=== PATIENT | female | born 1990 | race Caucasian/White ===

== ENCOUNTER 2020-03-21 14:29 | Outpatient (RCR) | payer MEDICAID, SELFPAY | END 2020-06-19 23:59 | disposition home or self-care (01) | LOC: ANHLAB 14:29 | PROVIDERS: PCP Nurse Practitioner Family; Visit Provider Obstetrics & Gynecology | DX: Z34.90 Encounter for supervision of normal pregnancy, unspecified, unspecified trimester (principal) | CPT/HCPCS: 36415; 84702 ==

== ENCOUNTER 2020-03-23 16:57 | Outpatient (CLI) | payer MEDICAID, SELFPAY | END 2020-03-23 16:58 | disposition home or self-care (01) | PROVIDERS: PCP Nurse Practitioner Family; Visit Provider Obstetrics & Gynecology | DX: Z34.90 Encounter for supervision of normal pregnancy, unspecified, unspecified trimester (principal) | CPT/HCPCS: 36415; 84702 ==

== ENCOUNTER 2020-03-29 14:58 | Outpatient (CLI) | payer MEDICAID, SELFPAY ==
--- NOTE | ~2020-03-29 | US_ITS ---
EXAMINATION: US OB <= 14 weeks fetus DATE: 03/29/2020 15:56 INDICATION: Uncertain dates. TECHNIQUE: Real-time transabdominal pelvic ultrasound was performed. COMPARISON: None. FINDINGS: The uterus measures 10.3 x 5.9 x 7.0 cm. There is an intrauterine gestational sac. A yolk sac is iden tified. The crown rump length measures 1.0 cm, which correlates with an estimated gestational age of 7 weeks and 1 day(s) (+/-) 5 day(s). heart motion is identified measuring 144 beats per minute (bpm) by M-mode Doppler. The right ovary measures 2.1 x 1.3 x 1.1 cm. The left ovary is not vi sualized. There is no free fluid in the pelvis. IMPRESSION: 1. Single living intrauterine gestation with estimated date of delivery of 11/14/2020. Reviewed, dictated and finalized at location A. IMPRESSION: 1. Single living intrauterine gestation with estimated date of delivery of 10/21.
== END 2020-03-29 14:59 | disposition home or self-care (01) ==
PROVIDERS: PCP Nurse Practitioner Family; Visit Provider Obstetrics & Gynecology
DX: Z34.90 Encounter for supervision of normal pregnancy, unspecified, unspecified trimester (principal); Z3A.00 Weeks of gestation of pregnancy not specified
CPT/HCPCS: 76801

== ENCOUNTER 2020-05-23 07:31 | Outpatient (CLI) | payer BC, MEDICAID, SELFPAY ==
[2020-05-23 08:08] LABS: Basophils Percent Auto 0.4 % (0.2-1.2); Eosinophils Absolute Auto 0.2 K/mm3 (0-0.3); Eosinophils Percent Auto 1.5 % (0-4.4); Hematocrit 35.9 % (37.0-47.0); Hemoglobin 12.3 g/dL (12.0-15.0); Immature Granulocyte Absolute 0.04 K/mm3 (0.00-0.031); Immature Granulocyte Percent A 0.4 % (0-0.5); Lymphocytes Absolute Auto 1.71 K/mm3 (0.9-3.2); Lymphocytes Percent Auto 17.2 % (18.3-44.2); Mean Corpuscular HGB Conc 34.3 g/dl (32-36); Mean Corpuscular Hemoglobin 29.9 pg (26-34); Mean Corpuscular Volume 87.1 fl (80-100); Mean Platelet Volume 9.2 fl (7.4-10.4); Monocytes Absolute Auto 0.5 K/mm3 (0.1-0.6); Monocytes Percent Auto 4.8 % (2.6-8.5); Neutrophils Absolute Auto 7.5 K/mm3 (1.3-6.7); Neutrophils Percent Auto 75.7 % (45.5-73.1); Platelet Count Result 285 k/mm3 (150-375); Red Blood Count 4.12 M/mm3 (4.2-5.4); Red Cell Distribution Width 12.9 % (11.5-14.5); White Blood Count 9.9 K/mm3 (4.5-10.0)
[2020-05-23 08:14] LABS: Add Urine Microscopic? YES; Appearance Urine Cloudy (Clear); Bacteria Urine Trace /hpf; Bilirubin Urine Negative (Negative); Blood Urine 2+ (Negative); Color Urine Yellow (Yellow); Glucose Urine UA Negative (Negative); Ketones Urine Negative (Negative); Leukocyte Esterase Ur Negative LEU/UL (NEGATIVE); Mucus Urine Moderate /lpf; Nitrate Urine Negative (Negative); Protein Urine 1+ mg/dL (Negative); Specific Grav Ur 1.019 (1.001-1.035); Squamous Epithelial Cell Urine Many /hpf (Few)
[2020-05-23 08:58] LABS: HIV 1/2 Ab P24 Ag Result Negative (Negative)
[2020-05-23 11:18] LABS: Hepatitis B Surface Antigen Negative (Negative); Rubella IgG Antibody 7.1 IU/ML; Vitamin D 25 Hydroxy 31.8 ng/mL
[2020-05-23 11:21] LABS: Hepatitis C Virus Antibody Negative (Negative)
[2020-05-23 11:35] LABS: Rapid Plasma Reagin Non-Reactive (NonReactive)
[2020-05-30 06:37] LABS: Hematocrit 36.3 % (35.0-45.0); Hemoglobin 12.5 g/dL (11.7-15.5); MCH 30.7 pg (27.0-33.0); MCV 89.2 FL (80.0-100.0); RDW 13.8 % (11.0-15.0); Red Blood Cell Count 4.07 Mill/uL (3.80-5.10)
== END 2020-05-23 07:32 | disposition home or self-care (01) ==
PROVIDERS: PCP Nurse Practitioner Family; Visit Provider Obstetrics & Gynecology
DX: Z34.90 Encounter for supervision of normal pregnancy, unspecified, unspecified trimester (principal)
CPT/HCPCS: 36415; 81001; 82306; 83021; 84443; 85025; 85461; 86592; 86703; 86762; 86787; 86803; 87086; 87340; G0432

== ENCOUNTER 2020-08-07 17:00 | Observation (INO) | payer BC, OTHER, SELFPAY ==
[2020-08-07 17:29] VITALS: BP 128/78; PULSE 95; BMI 29.6
[2020-08-07 17:31] VITALS: BP 129/80; PULSE 105
--- NOTE | 2020-08-07 17:31 | OBADM ---
This patient, Gerri Calvo, admitted to the OB room OB Post 115 for observation. Patient/family oriented to hospital policies and general routines including ID bracelet, bed and alarms, visiting hours, pain management, procedures, bathroom and other care routines, personal items, smoking policy, room service/diet, and visiting hours. Patient/Family are encouraged to report perceived risks to care and to ask questions if they do not understand what they are told or what they should do.
[2020-08-07 17:49] VITALS: TEMP 36.5
--- NOTE | 2020-08-07 17:59 | PC.NURSE ---
1739- called, informed pt came in stating she was told by to come in for evaluation. Pt states she had some light green discharge yesterday and thick white/clear discharge today. Denies contractions,cramping, or lower back pain. Order received perform SVE and if closed and no contractions may discharge home
--- NOTE | 2020-08-28 15:32 | PM.OBTRLD ---
OB - Triage/Final Diagnosis Final Diagnosis (1) Vaginal discharge during : Code(s): O26.899 - Other specified related conditions, unspecified trimester; N89.8 - Other specified noninflammatory disorders of vagina Status: Acute
== END 2020-08-07 18:30 | disposition home or self-care (01) ==
PROVIDERS: Admitting Provider Obstetrics & Gynecology; PCP Nurse Practitioner Family; Visit Provider Student in an Organized Health Care Education/Training Program
DX: O26.899 Other specified pregnancy related conditions, unspecified trimester (principal); N89.8 Other specified noninflammatory disorders of vagina; Z3A.00 Weeks of gestation of pregnancy not specified
CPT/HCPCS: G0378; G0379

== ENCOUNTER 2020-08-09 07:24 | Outpatient (RCR) | payer BC, OTHER, SELFPAY ==
[2020-08-09 09:12] LABS: Basophils Percent Auto 0.3 % (0.2-1.2); Eosinophils Absolute Auto 0.1 K/mm3 (0-0.3); Eosinophils Percent Auto 1.1 % (0-4.4); Hematocrit 33.6 % (37.0-47.0); Hemoglobin 11.3 g/dL (12.0-15.0); Immature Granulocyte Absolute 0.15 K/mm3 (0.00-0.031); Immature Granulocyte Percent A 1.4 % (0-0.5); Lymphocytes Absolute Auto 1.57 K/mm3 (0.9-3.2); Lymphocytes Percent Auto 14.3 % (18.3-44.2); Mean Corpuscular HGB Conc 33.6 g/dl (32-36); Mean Corpuscular Volume 89.1 fl (80-100); Monocytes Absolute Auto 0.4 K/mm3 (0.1-0.6); Monocytes Percent Auto 3.4 % (2.6-8.5); Neutrophils Absolute Auto 8.8 K/mm3 (1.3-6.7); Neutrophils Percent Auto 79.5 % (45.5-73.1); Platelet Count Result 265 k/mm3 (150-375); Red Blood Count 3.77 M/mm3 (4.2-5.4); Red Cell Distribution Width 12.7 % (11.5-14.5)
[2020-08-09 09:21] LABS: Glucose 1 Hour PP 50gm Dose 170 mg/dL
[2020-08-11] MEDS: RHO(D) IMMUNE GLOBULIN 300 MCG SYRINGE IM (15:59)
== END 2020-11-07 23:59 | disposition home or self-care (01) ==
LOC: ANHLAB 07:24
PROVIDERS: PCP Nurse Practitioner Family; Visit Provider Obstetrics & Gynecology
DX: Z29.13 Encounter for prophylactic Rho(D) immune globulin (principal); O36.0920 Maternal care for other rhesus isoimmunization, second trimester, not applicable or unspecified; Z3A.20 20 weeks gestation of pregnancy
CPT/HCPCS: 36415; 82947; 85025; 85461; 90384; 96372; J2790

== ENCOUNTER 2020-09-04 07:01 | Outpatient (CLI) | payer BC, OTHER, SELFPAY ==
[2020-09-04 07:50] LABS: Glucose Fasting Gestational 93 mg/dL (>/=95)
[2020-09-04 10:00] LABS: Glucose 1 Hour Gest 126 mg/dL (>/=180)
[2020-09-04 10:36] LABS: Glucose 2 Hour Gest 148 mg/dL (>/= 155)
[2020-09-04 11:49] LABS: Glucose 3 Hour Gest 123 mg/dL (>/=140)
== END 2020-09-04 07:02 | disposition home or self-care (01) ==
PROVIDERS: PCP Nurse Practitioner Family; Visit Provider Obstetrics & Gynecology
DX: Z34.93 Encounter for supervision of normal pregnancy, unspecified, third trimester (principal); Z3A.30 30 weeks gestation of pregnancy
CPT/HCPCS: 36415; 82951; 82952

== ENCOUNTER 2020-09-05 09:28 | Outpatient (CLI) | payer BC, OTHER, SELFPAY ==
[2020-09-05 09:46] VITALS: BP 126/74; PULSE 99
[2020-09-05 09:55] LABS: Basophils Percent Auto 0.3 % (0.2-1.2); Eosinophils Absolute Auto 0.1 K/mm3 (0-0.3); Eosinophils Percent Auto 1.1 % (0-4.4); Hematocrit 31.1 % (37.0-47.0); Hemoglobin 10.5 g/dL (12.0-15.0); Immature Granulocyte Absolute 0.13 K/mm3 (0.00-0.031); Immature Granulocyte Percent A 1.2 % (0-0.5); Lymphocytes Absolute Auto 1.77 K/mm3 (0.9-3.2); Lymphocytes Percent Auto 16.5 % (18.3-44.2); Mean Corpuscular HGB Conc 33.8 g/dl (32-36); Mean Corpuscular Hemoglobin 29.6 pg (26-34); Mean Corpuscular Volume 87.6 fl (80-100); Mean Platelet Volume 9.1 fl (7.4-10.4); Monocytes Absolute Auto 0.5 K/mm3 (0.1-0.6); Neutrophils Absolute Auto 8.1 K/mm3 (1.3-6.7); Neutrophils Percent Auto 75.9 % (45.5-73.1); Platelet Count Result 279 k/mm3 (150-375); Red Blood Count 3.55 M/mm3 (4.2-5.4); Red Cell Distribution Width 12.8 % (11.5-14.5); White Blood Count 10.7 K/mm3 (4.5-10.0)
[2020-09-05 10:00] VITALS: BP 122/77; PULSE 97
[2020-09-05 10:07] LABS: Alanine Aminotransferase 29 U/L (4-35); Albumin Level 3.5 g/dL (3.5-5.1); Alkaline Phosphatase 104 U/L (38-126); Anion Gap 6 mmol/L (8-16); Aspartate Amino Transferase 34 U/L (14-36); Bilirubin,Total 0.2 mg/dL (0.2-1.3); Blood Urea Nitrogen 8 mg/dL (7-17); Calcium 8.9 mg/dL (8.4-10.2); Carbon Dioxide 24 mmol/L (22-30); Chloride 105 mmol/L (98-107); Estimated Glomerular Filt Rate > 60; Glucose 119 mg/dL (65-105); Sodium 135 mmol/L (137-145); Uric Acid 5.2 mg/dL (2.5-7.5)
[2020-09-05 10:15] VITALS: BP 138/105; PULSE 73
[2020-09-05 10:31] VITALS: BP 122/79; PULSE 96
[2020-09-05 10:35] LABS: Creatinine Urine 14.3 mg/dL; Total Protein Urine Random 12 mg/dL
[2020-09-05 10:40] LABS: Add Urine Microscopic? YES; Appearance Urine Cloudy (Clear); Bacteria Urine 1+ /hpf; Bilirubin Urine Negative (Negative); Blood Urine 1+ (Negative); Color Urine Straw (Yellow); Glucose Urine UA Negative (Negative); Ketones Urine Negative (Negative); Leukocyte Esterase Ur Trace LEU/UL (NEGATIVE); Mucus Urine Rare /lpf; Nitrate Urine Negative (Negative); Protein Urine Negative (Negative); RBC Urine 0-2 /hpf (0-2); Specific Grav Ur 1.005 (1.001-1.035); Squamous Epithelial Cell Urine Many /hpf (Few); Transitional Epi Cells Urine Rare /hpf (None Seen); Urobilinogen Urine Negative mg/dL (<2.0); WBC Urine 0-3 /hpf (0-3)
[2020-09-05 10:45] VITALS: BP 122/73; PULSE 85
--- NOTE | 2020-09-05 10:55 | PC.NURSE ---
1050- called,read bp's and labs. Orders receive to discharge home with 24hr urine and have check bp's at home.
[2020-09-05 10:56] VITALS: BP 126/74; PULSE 97
== END 2020-09-05 10:57 | disposition home or self-care (01) ==
LOC: ANHOBOP 09:34 → ANHOBPP 09:35
PROVIDERS: PCP Nurse Practitioner Family; Visit Provider Obstetrics & Gynecology
DX: O13.9 Gestational [pregnancy-induced] hypertension without significant proteinuria, unspecified trimester (principal)
CPT/HCPCS: 36415; 59025; 80053; 81001; 82570; 84156; 84550; 85025; 87086; 99199

== ENCOUNTER 2020-09-06 10:26 | Outpatient (NON) | payer BC, OTHER, SELFPAY ==
[2020-09-06 10:36] VITALS: BMI 31.3
[2020-09-06 10:59] LABS: Collection Time Urine 24 HOURS
[2020-09-06 11:43] LABS: Creatinine Urine 72.8 mg/dL; Patient Weight 194 Lbs; Total Protein Urine Random 12 mg/dL
[2020-09-06 11:57] LABS: Total Protein Urine 24 Hr 216 MG/DAY (28-141); Total Volume 24 Hour Urine 1800 ml
== END 2020-09-06 10:27 ==
PROVIDERS: PCP Nurse Practitioner Family; Visit Provider Obstetrics & Gynecology
DX: R60.9 Edema, unspecified (principal)
CPT/HCPCS: 81050; 82575; 84156

== ENCOUNTER 2020-09-10 09:37 | Emergency (ER) | payer BC, OTHER, SELFPAY ==
--- NOTE | ~2020-09-10 | XR_ITS ---
EXAMINATION: XR chest 1V portable EXAM DATE: 09/10/2020 10:35 INDICATION: Fever, body aches, exposure to covid, 30 wks . 30 weeks . TECHNIQUE: Portable AP frontal chest x-ray was obtained. There is no prior study for comparison. FINDINGS: The lungs are clear. There are no pleural effusions. The cardiomediastinal silhouette is within normal limits. There is no pneumothorax suspected. The bones and soft tissues are unremarkab le. IMPRESSION: Normal chest x-ray exam. Reviewed, dictated and finalized at location A. L MODEL MAKER IMPRESSION: Normal chest x-ray exam.
--- NOTE | ~2020-09-10 | CT_ITS ---
EXAMINATION: CTA chest PE protocol EXAM DATE: 09/10/2020 13:27 INDICATION: chest pain, shortness of breath, elevated dimer. COVID positive. . TECHNIQUE: Spiral CTA of the chest (pulmonary arteries) was performed with 100 cc Omnipaque 350 intr avenous contrast injection. Images were acquired during the pulmonary arterial phase. Coronal maxi mum intensity projection 3D-reconstructions were created by the technologist on dedicated workstation . Axial, coronal and sagittal reformatted images were reviewed. The dose-length product (DLP) for t his examination was 375.69 mGy-cm. The exposure was tailored according to patient size (auto mA exp osure control), and iterative reconstruction (ASIR) was used as additional dose reduction technique. There is no prior study for comparison. FINDINGS: There are no pulmonary emboli in the 1st through 3rd order (central and interlobar) pulmon luke arteries. Some loss of attenuation in the segmental pulmonary arteries due to respiratory motion , but no intraluminal filling defects suspected. No thoracic aortic dissection. The lungs are roman r. There are no pleural or pericardial effusions. Tracheobronchial tree is patent. There is no mediastinal, hilar or axillary lymphadenopathy. There is no pneumothorax. Heart normal in size. No evidence of coronary arterial calcification. There is hepatic steatosis. There is thoracic spon dylosis without osteoblastic or osteolytic lesions identified. IMPRESSION: 1. No pulmonary emboli or acute findings. 2. Hepatic steatosis. Reviewed, dictated and finalized at location A. OSITION STONE APPLICATOR
--- NOTE | ~2020-09-10 | US_ITS ---
EXAMINATION: US venous doppler LE EXAM DATE: 09/10/2020 12:13 INDICATION: swelling, elevated dimer, , shortness of breath. Leg cramping. TECHNIQUE: Multiple grayscale, color flow and Doppler images of the lower extremity deep venous syste ms bilaterally were obtained and reviewed. There is no prior study for comparison. FINDINGS: Right side: The right common femoral, femoral and profunda veins demonstrate normal color flow, respi ratory variation, augmentation and compressibility. Compressibility, color flow confirmed within the right popliteal, posterior tibial, peroneal, and greater saphenous veins. Left side: The left common femoral, femoral and profunda veins demonstrate normal color flow, respira tory variation, augmentation and compressibility. Compressibility, color flow confirmed within the l eft popliteal, posterior tibial, peroneal, and greater saphenous veins. IMPRESSION: 1. No lower extremity deep venous thrombosis bilaterally. Reviewed, dictated and finalized at location A. DCARE ADMINISTRATOR
[2020-09-10 09:54] VITALS: BP 124/97; PULSE 100; RESP 20; TEMP 36.7; O2SAT 97
[2020-09-10 10:36] LABS: Basophils Percent Auto 0.4 % (0.2-1.2); Eosinophils Percent Auto 0.3 % (0-4.4); Hematocrit 33.9 % (37.0-47.0); Hemoglobin 11.4 g/dL (12.0-15.0); Immature Granulocyte Absolute 0.17 K/mm3 (0.00-0.031); Immature Granulocyte Percent A 1.8 % (0-0.5); Lymphocytes Percent Auto 6.3 % (18.3-44.2); Mean Corpuscular HGB Conc 33.6 g/dl (32-36); Mean Corpuscular Hemoglobin 29.1 pg (26-34); Mean Corpuscular Volume 86.5 fl (80-100); Mean Platelet Volume 9.4 fl (7.4-10.4); Monocytes Absolute Auto 0.7 K/mm3 (0.1-0.6); Monocytes Percent Auto 7.3 % (2.6-8.5); Neutrophils Percent Auto 83.9 % (45.5-73.1); Platelet Count Result 256 k/mm3 (150-375); Red Blood Count 3.92 M/mm3 (4.2-5.4); Red Cell Distribution Width 13.2 % (11.5-14.5); White Blood Count 9.6 K/mm3 (4.5-10.0)
[2020-09-10 10:47] LABS: Add Urine Microscopic? YES; Appearance Urine Cloudy (Clear); Bacteria Urine Trace /hpf; Bilirubin Urine Negative (Negative); Blood Urine 1+ (Negative); Color Urine Yellow (Yellow); Glucose Urine UA Negative (Negative); Ketones Urine Trace mg/dL (Negative); Leukocyte Esterase Ur Negative LEU/UL (Negative); Mucus Urine Rare /lpf; Nitrate Urine Negative (Negative); Protein Urine Negative (Negative); Specific Grav Ur 1.015 (1.001-1.035); Squamous Epithelial Cell Urine Many /hpf (Few); Urobilinogen Urine Negative mg/dL (<2.0); WBC Urine 0-3 /hpf
[2020-09-10 10:53] LABS: INR 0.9; Prothrombin Time 12.7 Seconds (11.1-14.7)
[2020-09-10 10:54] LABS: Lactic Acid Reflex 1.4 mmol/L (0.7-2.1); Partial Thromboplastin Time 24.5 SECONDS (22.3-36.8)
[2020-09-10 10:58] LABS: Alanine Aminotransferase 33 U/L (4-35); Albumin Level 3.7 g/dL (3.5-5.1); Alkaline Phosphatase 125 U/L (38-126); Anion Gap 11 mmol/L (8-16); Aspartate Amino Transferase 44 U/L (14-36); Bilirubin,Total 0.3 mg/dL (0.2-1.3); Blood Urea Nitrogen 6 mg/dL (7-17); CRP 1.1 mg/dL (<1.0); Calcium 9.6 mg/dL (8.4-10.2); Carbon Dioxide 24 mmol/L (22-30); Chloride 100 mmol/L (98-107); Estimated CRCL calculation 131 ml/min; Estimated Glomerular Filt Rate > 60; Glucose 87 mg/dL (65-105); Lipase 71 U/L (23-300); Potassium 3.7 mmol/L (3.4-5.0); Sodium 135 mmol/L (137-145)
--- NOTE | 2020-09-10 10:58 | ECG_ITS ---
Measurements Intervals [place] Rate: 97 P: 9 ND: 128 QRS: 44 QRSD: 82 T: -6 QT: 330 QTc: 420 Interpretive Statements SINUS RHYTHM BORDERLINE ST-T WAVE ABNORMALITY- ANT/INF LEADS BORDERLINE ECG Electronically Signed On 09-10-2020 17:09:23 PACKER OPERATOR AUTOMATIC by Simon Huang D.O.
[2020-09-10 11:00] VITALS: BP 116/76; PULSE 100; RESP 16; O2SAT 99
--- NOTE | 2020-09-10 11:00 | ED.FEVER ---
HPI - Fever General Chief Complaint: Fever Stated Complaint: fever, aches, Time Seen by Provider: 09/10/20 10:13 Source: patient Mode of arrival: ambulatory Limitations: no limitations History of Present Illness HPI Narrative: This is a 30-year-old , 30 weeks and 5 days that presents the emergency department for fever today. Reports yesterday she was having some sharp right sided upper back pain. Reports the pain felt like it was come from her chest and radiating into her back. It was intermittent in nature. Reports today she woke up and felt like a bus hit her. Reports myalgias and leg cramping. Reports she has been getting swelling in the lower extremities. Reports chest tightness and shortness of breath with exertion. 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 Reports a mild cough and discomfort in her throat. Denies abdominal pain, vomiting, dysuria, hematuria, pelvic cramping, or vaginal bleeding. Related Data Home Medications Medication Instructions Recorded Confirmed docosahexaenoic acid 200 mg capsule 200 mg PO DAILY 03/21/20 09/05/20 aspirin 81 mg tablet,delayed 81 mg PO DAILY 07/03/20 09/05/20 release Allergies Allergy/AdvReac Type Severity Reaction Status Date / Time doxycycline Allergy Severe Anaphylactic Verified 09/05/20 08:52 Shock spironolactone Allergy Severe Anaphylactic Verified 09/05/20 08:52 Shock Review of Systems Review of Systems: Narrative: CONSTITUTIONAL: Reports fever ENT: Reports sore throat CARDIOVASCULAR: Reports chest pain, and edema. RESPIRATORY: Reports cough and dyspnea. GASTROINTESTINAL: Denies abdominal pain, nausea, vomiting GENITOURINARY: Denies dysuria or hematuria. MUSCULOSKELETAL: Reports back pain, and myalgia. All systems reviewed & are unremarkable except as noted in HPI and below PMFSH Past Medical History Medical History (Updated 09/10/20 @ 11:07 by Christina Perez PA-C) Endometriosis History of pre-eclampsia in prior , currently Vaginal delivery Family History Family History Grandparent Hypertension Family history of elevated blood lipids Cerebrovascular accident Diabetes mellitus Mother Hypertension Family history of diabetes mellitus in first degree relative Family history of coronary artery disease Social History Social History Smoking status: Never smoker Second hand tobacco smoke exposure: Yes Smoking end date: 10/20/12 Alcohol intake: never Exam Narrative: Exam Narrative: GENERAL: Well-appearing, well-nourished, and in no acute distress. HEAD: Normocephalic, atraumatic. EYES: EOMI. ENT: Nares clear, no rhinorrhea or epistaxis. Mucous membranes moist. Oropharynx without tonsillar hypertrophy exudate or other lesions. Bilateral TMs pearly abraham non-bulging NECK: Supple. No adenopathy or masses. CHEST: Clear to auscultation. No respiratory distress. No wheezes rales or rhonchi HEART: Regular rate and rhythm. No murmur heard. Normal peripheral pulses. ABDOMEN: Gravid, nontender, normal active bowel sounds. EXTREMITIES: Normal range of motion. No edema. SKIN: Warm, dry, no rash. NEURO: No focal deficits. Alert and oriented x3. PSYCH: Normal mood and affect Course Vital Signs Vital signs: Vital Signs Temperature 98.1 F 09/10/20 09:54 Pulse Rate 100 09/10/20 09:54 Respiratory Rate 20 09/10/20 09:54 Blood Pressure 124/97 H 09/10/20 09:54 Pulse Oximetry 97 09/10/20 09:54 Temperature 98.1 F 09/10/20 09:54 Pulse Rate 100 09/10/20 09:54 Respiratory Rate 20 09/10/20 09:54 Blood Pressure 124/97 H 09/10/20 09:54 Pulse Oximetry 97 09/10/20 09:54 MDM - Fever Lab Data Result diagrams: 09/10/20 10:29 09/10/20 10:29 Labs: Lab Results 09/10/20 09/10/20 09/10/20 Range/Units 10:29 10:29 10:29 WBC 9
[2020-09-10 11:01] LABS: NT Pro B Type Natriuretic Pept 94 PG/ML (5-100)
--- NOTE | 2020-09-10 11:08 | ED.FEVER ---
HPI - Fever General Chief Complaint: Fever Stated Complaint: fever, aches, Time Seen by Provider: 09/10/20 10:13 Source: patient Mode of arrival: ambulatory Limitations: no limitations History of Present Illness HPI Narrative: This is a 30-year-old G2, P1, 30 weeks and 5 days that presents the emergency department for fever this morning. Reports yesterday she had intermittent, sharp right-sided mid back pain. Reports it felt like it was coming from her chest and radiating around to her back. Reports this lasted most of the day yesterday. Reports when she woke up this morning she felt like a bus hit her. Reports myalgias and cramping in her lower extremities. Reports she has been getting swelling in her lower extremities. Also reports dyspnea on exertion. Reports a mild cough and sore throat. 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 Her OB is Dr. Carballo. Denies abdominal pain, vomiting, dysuria, pelvic cramping, or vaginal bleeding. Related Data Home Medications Medication Instructions Recorded Confirmed docosahexaenoic acid 200 mg capsule 200 mg PO DAILY 03/21/20 09/05/20 aspirin 81 mg tablet,delayed 81 mg PO DAILY 07/03/20 09/05/20 release Allergies Allergy/AdvReac Type Severity Reaction Status Date / Time doxycycline Allergy Severe Anaphylactic Verified 09/05/20 08:52 Shock spironolactone Allergy Severe Anaphylactic Verified 09/05/20 08:52 Shock Review of Systems Review of Systems: Narrative: CONSTITUTIONAL: Reports fever ENT: Reports sore throat CARDIOVASCULAR: Reports chest pain, edema. RESPIRATORY: Reports cough and dyspnea. GASTROINTESTINAL: Denies abdominal pain, nausea, vomiting GENITOURINARY: Denies dysuria or hematuria. MUSCULOSKELETAL: Reports back pain, and myalgia. All systems reviewed & are unremarkable except as noted in HPI and below PMFSH Past Medical History Medical History (Updated 09/10/20 @ 14:12 by Christina Perez PA-C) Endometriosis History of pre-eclampsia in prior , currently Vaginal delivery Family History Family History Grandparent Hypertension Family history of elevated blood lipids Cerebrovascular accident Diabetes mellitus Mother Hypertension Family history of diabetes mellitus in first degree relative Family history of coronary artery disease Social History Social History Smoking status: Never smoker Second hand tobacco smoke exposure: Yes Smoking end date: 10/20/12 Alcohol intake: never Exam Narrative: Exam Narrative: GENERAL: Well-appearing, well-nourished, and in no acute distress. HEAD: Normocephalic, atraumatic. EYES: EOMI. ENT: Nares clear, no rhinorrhea or epistaxis. Mucous membranes moist. Oropharynx without tonsillar hypertrophy exudate or other lesions. Bilateral TMs pearly abraham non-bulging NECK: Supple. No adenopathy or masses. CHEST: Clear to auscultation. No respiratory distress. No wheezes rales or rhonchi HEART: Regular rate and rhythm. No murmur heard. Normal peripheral pulses. ABDOMEN: Gravid, nontender, normal active bowel sounds. EXTREMITIES: Normal range of motion. No edema. SKIN: Warm, dry, no rash. NEURO: No focal deficits. Alert and oriented x3. PSYCH: Normal mood and affect Course Consultations Consultation #1: Spoke with Dr. Byrnes about patient and work-up. She is stable and felt appropriate for discharge home and further outpatient evaluation. Date: 09/10/20 Time: 14:10 Vital Signs Vital signs: Vital Signs Temperature 98.1 F 09/10/20 09:54 Pulse Rate 100 09/10/20 09:54 Respiratory Rate 20 09/10/20 09:54 Blood Pressure 124/97 H 09/10/20 09:54 Pulse Oximetry 97 09/10/20 09:54 Temperature 98.1 F 09/10/20 09:54 Pulse Rate 95 09/10/20 12:00 Respiratory Rate 16 09/10/20 12:00 Blood Pressure 121/83 09/10/20 12:00
--- NOTE | 2020-09-10 11:10 | PC.NURSE ---
called Jessie ngo, added on D Dimer Trop I Baseline 1113
[2020-09-10 11:26] LABS: D Dimer 1.49 ug/mL (<0.48)
[2020-09-10 11:30] VITALS: BP 116/76; PULSE 104
[2020-09-10 11:37] LABS: Troponin I < 0.012 ng/mL (0.000-0.034)
[2020-09-10] MEDS: SODIUM CHLORIDE 0.9% IV 1,000 ML 999 ML IV CONT (11:40)
[2020-09-10 12:00] VITALS: BP 121/83; PULSE 95; RESP 16; O2SAT 100
[2020-09-10 13:15] VITALS: BP 100/48; PULSE 100; RESP 16; O2SAT 100
[2020-09-10 14:45] VITALS: BP 130/80; PULSE 114; RESP 16; O2SAT 99
[2020-09-10 22:24] LABS: SARS-CoV-2 RNA PCR Positive
== END 2020-09-10 14:45 | disposition home or self-care (01) ==
PROVIDERS: Physician Assistant; Emergency Provider Emergency Medicine; PCP Nurse Practitioner Family
DX: O98.513 Other viral diseases complicating pregnancy, third trimester (principal); U07.1 COVID-19; Z3A.30 30 weeks gestation of pregnancy; O99.613 Diseases of the digestive system complicating pregnancy, third trimester; K76.0 Fatty (change of) liver, not elsewhere classified; R94.31 Abnormal electrocardiogram [ECG] [EKG]; O34.83 Maternal care for other abnormalities of pelvic organs, third trimester; N80.9 Endometriosis, unspecified
CPT/HCPCS: 36415; 71045; 71275; 80053; 81001; 83605; 83690; 83880; 84484; 85025; 85380; 85610; 85730; 86140; 87635; 87804; 93005; 93970; 96360; 99284; C9803; J7030; Q9967; U0003

== ENCOUNTER 2020-09-21 09:04 | Outpatient (CLI) | payer BC, OTHER, SELFPAY ==
[2020-09-21 09:49] VITALS: BP 114/71; PULSE 86
[2020-09-21 09:56] LABS: Basophils Percent Auto 0.1 % (0.2-1.2); Eosinophils Absolute Auto 0.1 K/mm3 (0-0.3); Eosinophils Percent Auto 0.8 % (0-4.4); Hematocrit 31.7 % (37.0-47.0); Hemoglobin 10.7 g/dL (12.0-15.0); Immature Granulocyte Absolute 0.11 K/mm3 (0.00-0.031); Immature Granulocyte Percent A 1.5 % (0-0.5); Lymphocytes Absolute Auto 1.29 K/mm3 (0.9-3.2); Lymphocytes Percent Auto 17.7 % (18.3-44.2); Mean Corpuscular HGB Conc 33.8 g/dl (32-36); Mean Corpuscular Hemoglobin 29.2 pg (26-34); Mean Corpuscular Volume 86.4 fl (80-100); Mean Platelet Volume 9.1 fl (7.4-10.4); Monocytes Absolute Auto 0.5 K/mm3 (0.1-0.6); Monocytes Percent Auto 6.2 % (2.6-8.5); Neutrophils Absolute Auto 5.4 K/mm3 (1.3-6.7); Neutrophils Percent Auto 73.7 % (45.5-73.1); Platelet Count Result 260 k/mm3 (150-375); Red Blood Count 3.67 M/mm3 (4.2-5.4); Red Cell Distribution Width 13.6 % (11.5-14.5); White Blood Count 7.3 K/mm3 (4.5-10.0)
[2020-09-21 10:00] VITALS: BP 104/80; BP 114/71; PULSE 80; PULSE 98
[2020-09-21 10:08] LABS: Alanine Aminotransferase 30 U/L (4-35); Albumin Level 3.1 g/dL (3.5-5.1); Alkaline Phosphatase 142 U/L (38-126); Anion Gap 6 mmol/L (8-16); Aspartate Amino Transferase 37 U/L (14-36); Bilirubin,Total 0.3 mg/dL (0.2-1.3); Blood Urea Nitrogen 10 mg/dL (7-17); Calcium 9.3 mg/dL (8.4-10.2); Carbon Dioxide 26 mmol/L (22-30); Chloride 104 mmol/L (98-107); Estimated Glomerular Filt Rate > 60; Glucose 98 mg/dL (65-105); Potassium 3.8 mmol/L (3.4-5.0); Sodium 136 mmol/L (137-145); Uric Acid 5.3 mg/dL (2.5-7.5)
[2020-09-21 10:15] VITALS: BP 106/61; PULSE 78
[2020-09-21 10:33] LABS: Creatinine Urine 88.5 mg/dL; Total Protein Urine Random 19 mg/dL
[2020-09-21 10:40] LABS: Add Urine Microscopic? YES; Appearance Urine Cloudy (Clear); Bacteria Urine Trace /hpf; Bilirubin Urine Negative (Negative); Blood Urine 1+ (Negative); Color Urine Yellow (Yellow); Glucose Urine UA Negative (Negative); Ketones Urine Negative (Negative); Leukocyte Esterase Ur Negative LEU/UL (NEGATIVE); Mucus Urine Rare /lpf; Nitrate Urine Negative (Negative); Protein Urine Negative (Negative); RBC Urine 0-2 /hpf (0-2); Specific Grav Ur 1.015 (1.001-1.035); Squamous Epithelial Cell Urine Rare /hpf (Few); Urobilinogen Urine Negative mg/dL (<2.0); WBC Urine 0-3 /hpf (0-3)
[2020-09-21 10:46] VITALS: BP 150/71; PULSE 62
[2020-09-21 10:56] LABS: HIV 1/2 Ab P24 Ag Result Negative (Negative)
[2020-09-21 11:01] VITALS: BP 163/104; PULSE 42
--- NOTE | 2020-09-21 11:05 | PC.NURSE ---
1102--Reported lab results and BP's to Dr. Carballo. Order for 24hour urine given. DC orders given.
[2020-09-21 11:16] VITALS: BP 108/66; PULSE 89
[2020-09-22 06:51] LABS: Rapid Plasma Reagin Non-Reactive (NonReactive)
== END 2020-09-21 11:29 | disposition home or self-care (01) ==
LOC: ANHOBOP 09:07 → ANHOBPP 09:08
PROVIDERS: PCP Nurse Practitioner Family; Visit Provider Obstetrics & Gynecology
DX: O16.3 Unspecified maternal hypertension, third trimester (principal); Z3A.32 32 weeks gestation of pregnancy
CPT/HCPCS: 36415; 59025; 80053; 81001; 82570; 84156; 84550; 85025; 86592; 86703; 87086; 87088; 99199; G0432

== ENCOUNTER 2020-09-22 12:42 | Outpatient (CLI) | payer BC, OTHER, SELFPAY ==
[2020-09-22 12:58] VITALS: BMI 31.1
[2020-09-22 13:30] LABS: Collection Time Urine 24 HOURS
[2020-09-22 13:37] LABS: Patient Weight 192 Lbs; Total Volume 24 Hour Urine 1400 ml
[2020-09-22 13:41] LABS: Creatinine Clearance Urine 161.1 ml/min (75-125); Creatinine Urine 93.8 mg/dL; Total Protein Urine 24 Hr 154 MG/DAY (28-141); Total Protein Urine Random 11 mg/dL
== END 2020-09-22 12:43 | disposition home or self-care (01) ==
LOC: ANHOBOP 12:44
PROVIDERS: PCP Nurse Practitioner Family; Visit Provider Obstetrics & Gynecology
DX: Z34.93 Encounter for supervision of normal pregnancy, unspecified, third trimester (principal); Z3A.32 32 weeks gestation of pregnancy
CPT/HCPCS: 81050; 82575; 84156

== ENCOUNTER → 2020-10-11 | Outpatient (NON) | payer BC, OTHER, SELFPAY ==
[2020-10-11 16:12] VITALS: BMI 32.0
[2020-10-11 19:06] LABS: Collection Time Urine 24 HOURS
[2020-10-11 19:33] LABS: Creatinine Urine 68.7 mg/dL; Patient Weight 198 Lbs; Total Protein Urine Random 13 mg/dL
[2020-10-11 19:38] LABS: Total Protein Urine 24 Hr 247 MG/DAY (28-141); Total Volume 24 Hour Urine 1900 ml
== END | disposition home or self-care (01) ==
LOC: ANHOBOP 15:55
PROVIDERS: PCP Nurse Practitioner Family; Visit Provider Obstetrics & Gynecology
DX: O13.9 Gestational [pregnancy-induced] hypertension without significant proteinuria, unspecified trimester (principal); Z3A.00 Weeks of gestation of pregnancy not specified
CPT/HCPCS: 81050; 82575; 84156

== ENCOUNTER 2020-10-13 21:12 | Observation (INO) | payer BC, OTHER, SELFPAY ==
[2020-10-13 21:20] VITALS: TEMP 36.3
[2020-10-13 21:25] VITALS: BP 145/96; PULSE 84
[2020-10-13 21:31] VITALS: BP 129/89; PULSE 97
[2020-10-13 22:01] VITALS: BP 134/84; PULSE 92
[2020-10-13 22:46] VITALS: TEMP 36.3; BMI 32.0
--- NOTE | 2020-10-13 22:49 | OBADM ---
This patient, Gerri Calvo, admitted to the OB room OB Post 116 for observation. Patient/family oriented to hospital policies and general routines including ID bracelet, bed and alarms, visiting hours, pain management, procedures, bathroom and other care routines, personal items, smoking policy, room service/diet, and visiting hours. Patient/Family are encouraged to report perceived risks to care and to ask questions if they do not understand what they are told or what they should do.
--- NOTE | 2020-10-24 11:19 | PM.OBTRLD ---
OB - Triage/Final Diagnosis Visit Information Reason for evaluation: decreased movement
== END 2020-10-13 22:40 | disposition home or self-care (01) ==
PROVIDERS: Admitting Provider Obstetrics & Gynecology; PCP Nurse Practitioner Family; Visit Provider Obstetrics & Gynecology
DX: O36.8130 Decreased fetal movements, third trimester, not applicable or unspecified (principal); Z3A.35 35 weeks gestation of pregnancy
CPT/HCPCS: G0378; G0379

== ENCOUNTER 2020-10-21 07:58 | Outpatient (RCR) | payer BC, OTHER, SELFPAY ==
[2020-09-27 11:29] LABS: Basophils Percent Auto 0.2 % (0.2-1.2); Eosinophils Absolute Auto 0.1 K/mm3 (0-0.3); Eosinophils Percent Auto 0.7 % (0-4.4); Hematocrit 33.4 % (37.0-47.0); Hemoglobin 11.2 g/dL (12.0-15.0); Immature Granulocyte Percent A 1.1 % (0-0.5); Lymphocytes Absolute Auto 1.54 K/mm3 (0.9-3.2); Lymphocytes Percent Auto 16.4 % (18.3-44.2); Mean Corpuscular HGB Conc 33.5 g/dl (32-36); Mean Corpuscular Hemoglobin 28.9 pg (26-34); Mean Corpuscular Volume 86.3 fl (80-100); Mean Platelet Volume 9.5 fl (7.4-10.4); Monocytes Absolute Auto 0.5 K/mm3 (0.1-0.6); Monocytes Percent Auto 5.8 % (2.6-8.5); Neutrophils Absolute Auto 7.1 K/mm3 (1.3-6.7); Neutrophils Percent Auto 75.8 % (45.5-73.1); Platelet Count Result 279 k/mm3 (150-375); Red Blood Count 3.87 M/mm3 (4.2-5.4); White Blood Count 9.4 K/mm3 (4.5-10.0)
[2020-09-27 11:41] LABS: Alanine Aminotransferase 25 U/L (4-35); Albumin Level 3.5 g/dL (3.5-5.1); Alkaline Phosphatase 139 U/L (38-126); Anion Gap 8 mmol/L (8-16); Aspartate Amino Transferase 31 U/L (14-36); Bilirubin,Total 0.3 mg/dL (0.2-1.3); Blood Urea Nitrogen 7 mg/dL (7-17); Calcium 9.1 mg/dL (8.4-10.2); Carbon Dioxide 21 mmol/L (22-30); Chloride 105 mmol/L (98-107); Estimated Glomerular Filt Rate > 60; Glucose 86 mg/dL (65-105); Potassium 4.3 mmol/L (3.4-5.0); Sodium 134 mmol/L (137-145); Uric Acid 5.9 mg/dL (2.5-7.5)
[2020-09-27 11:42] VITALS: BP 126/79; PULSE 85
--- NOTE | 2020-09-27 12:13 | PC.NURSE ---
1210- per Dr. Carballo, patient may be discharged to home with twice weekly NSTs and SHELLY's
[2020-09-30 10:15] VITALS: BP 121/77; PULSE 99
--- NOTE | 2020-09-30 11:27 | PC.NURSE ---
1125- Spoke with Dr. Carballo, rective NST, SHELLY 13.3 and BP reviewed. Orders to discharge to home.
[2020-10-03 09:51] LABS: Basophils Percent Auto 0.4 % (0.2-1.2); Eosinophils Absolute Auto 0.1 K/mm3 (0-0.3); Hematocrit 33.5 % (37.0-47.0); Hemoglobin 11.1 g/dL (12.0-15.0); Immature Granulocyte Absolute 0.13 K/mm3 (0.00-0.031); Immature Granulocyte Percent A 1.3 % (0-0.5); Lymphocytes Absolute Auto 1.69 K/mm3 (0.9-3.2); Lymphocytes Percent Auto 16.3 % (18.3-44.2); Mean Corpuscular HGB Conc 33.1 g/dl (32-36); Mean Corpuscular Hemoglobin 28.9 pg (26-34); Mean Corpuscular Volume 87.2 fl (80-100); Mean Platelet Volume 9.8 fl (7.4-10.4); Monocytes Absolute Auto 0.6 K/mm3 (0.1-0.6); Monocytes Percent Auto 5.6 % (2.6-8.5); Neutrophils Absolute Auto 7.8 K/mm3 (1.3-6.7); Neutrophils Percent Auto 75.4 % (45.5-73.1); Platelet Count Result 259 k/mm3 (150-375); Red Blood Count 3.84 M/mm3 (4.2-5.4); Red Cell Distribution Width 14.8 % (11.5-14.5); White Blood Count 10.4 K/mm3 (4.5-10.0)
[2020-10-03 10:30] LABS: Alanine Aminotransferase 25 U/L (4-35); Albumin Level 3.3 g/dL (3.5-5.1); Alkaline Phosphatase 121 U/L (38-126); Anion Gap 8 mmol/L (8-16); Aspartate Amino Transferase 31 U/L (14-36); Bilirubin,Total 0.3 mg/dL (0.2-1.3); Blood Urea Nitrogen 6 mg/dL (7-17); Carbon Dioxide 21 mmol/L (22-30); Chloride 105 mmol/L (98-107); Estimated Glomerular Filt Rate > 60; Glucose 118 mg/dL (65-105); Potassium 4.1 mmol/L (3.4-5.0); Sodium 134 mmol/L (137-145)
[2020-10-03 10:57] VITALS: BP 120/74; PULSE 94
[2020-10-06 14:13] VITALS: BP 115/83; PULSE 91
[2020-10-10 12:32] VITALS: BP 148/93; PULSE 81
[2020-10-10 12:43] LABS: Basophils Percent Auto 0.3 % (0.2-1.2); Eosinophils Absolute Auto 0.1 K/mm3 (0-0.3); Eosinophils Percent Auto 0.8 % (0-4.4); Hematocrit 30.9 % (37.0-47.0); Hemoglobin 10.3 g/dL (12.0-15.0); Immature Granulocyte Absolute 0.13 K/mm3 (0.00-0.031); Immature Granulocyte Percent A 1.3 % (0-0.5); Lymphocytes Absolute Auto 1.62 K/mm3 (0.9-3.2); Lymphocytes Percent Auto 15.6 % (18.3-44.2); Mean Corpuscular HGB Conc 33.3 g/dl (32-36); Mean Corpuscular Hemoglobin 28.5 pg (26-34); Mean Corpuscular Volume 85.6 fl (80-100); Mean Platelet Volume 10.1 fl (7.4-10.4); Monocytes Absolute Auto 0.6 K/mm3 (0.1-0.6); Monocytes Percent Auto 5.5 % (2.6-8.5); Neutrophils Percent Auto 76.5 % (45.5-73.1); Platelet Count Result 219 k/mm3 (150-375); Red Blood Count 3.61 M/mm3 (4.2-5.4); Red Cell Distribution Width 14.8 % (11.5-14.5); White Blood Count 10.4 K/mm3 (4.5-10.0)
[2020-10-10 12:47] LABS: Add Urine Microscopic? YES; Appearance Urine Cloudy (Clear); Bacteria Urine Trace /hpf; Bilirubin Urine Negative (Negative); Blood Urine 1+ (Negative); Color Urine Yellow (Yellow); Glucose Urine UA Negative (Negative); Ketones Urine Negative (Negative); Leukocyte Esterase Ur Trace LEU/UL (NEGATIVE); Mucus Urine Rare /lpf; Nitrate Urine Negative (Negative); Protein Urine Negative (Negative); Squamous Epithelial Cell Urine Many /hpf (Few); Urobilinogen Urine Negative mg/dL (<2.0)
[2020-10-10 12:49] LABS: Creatinine Urine 38.9 mg/dL; Total Protein Urine Random 12 mg/dL; Ur Ttl Prot Creatinine Ratio 0.31 mg/mg (0-0.20)
[2020-10-10 12:59] LABS: Alanine Aminotransferase 19 U/L (4-35); Albumin Level 3.4 g/dL (3.5-5.1); Alkaline Phosphatase 120 U/L (38-126); Anion Gap 6 mmol/L (8-16); Aspartate Amino Transferase 27 U/L (14-36); Bilirubin,Total 0.3 mg/dL (0.2-1.3); Blood Urea Nitrogen 6 mg/dL (7-17); Calcium 8.9 mg/dL (8.4-10.2); Carbon Dioxide 22 mmol/L (22-30); Chloride 105 mmol/L (98-107); Estimated Glomerular Filt Rate > 60; Glucose 94 mg/dL (65-105); Potassium 4.1 mmol/L (3.4-5.0); Sodium 133 mmol/L (137-145); Uric Acid 5.6 mg/dL (2.5-7.5)
[2020-10-14 16:28] VITALS: BP 125/87; PULSE 101
[2020-10-17 11:14] LABS: Basophils Percent Auto 0.3 % (0.2-1.2); Eosinophils Absolute Auto 0.1 K/mm3 (0-0.3); Eosinophils Percent Auto 0.9 % (0-4.4); Hematocrit 29.1 % (37.0-47.0); Hemoglobin 9.8 g/dL (12.0-15.0); Immature Granulocyte Absolute 0.14 K/mm3 (0.00-0.031); Immature Granulocyte Percent A 1.2 % (0-0.5); Lymphocytes Absolute Auto 2.18 K/mm3 (0.9-3.2); Lymphocytes Percent Auto 19.4 % (18.3-44.2); Mean Corpuscular HGB Conc 33.7 g/dl (32-36); Mean Corpuscular Hemoglobin 28.7 pg (26-34); Mean Corpuscular Volume 85.3 fl (80-100); Monocytes Absolute Auto 0.8 K/mm3 (0.1-0.6); Monocytes Percent Auto 7.3 % (2.6-8.5); Neutrophils Percent Auto 70.9 % (45.5-73.1); Nucleated Red Blood Cells Perc 0.2 % (0.0-0.2); Platelet Count Result 240 k/mm3 (150-375); Red Blood Count 3.41 M/mm3 (4.2-5.4); Red Cell Distribution Width 14.7 % (11.5-14.5); White Blood Count 11.2 K/mm3 (4.5-10.0)
[2020-10-17 11:27] LABS: Alanine Aminotransferase 17 U/L (4-35); Albumin Level 3.5 g/dL (3.5-5.1); Alkaline Phosphatase 124 U/L (38-126); Anion Gap 8 mmol/L (8-16); Aspartate Amino Transferase 27 U/L (14-36); Bilirubin,Total 0.3 mg/dL (0.2-1.3); Blood Urea Nitrogen 8 mg/dL (7-17); Calcium 9.2 mg/dL (8.4-10.2); Carbon Dioxide 22 mmol/L (22-30); Chloride 105 mmol/L (98-107); Estimated Glomerular Filt Rate > 60; Glucose 72 mg/dL (65-105); Potassium 4.3 mmol/L (3.4-5.0); Sodium 135 mmol/L (137-145); Uric Acid 6.7 mg/dL (2.5-7.5)
[2020-10-17 11:59] LABS: Creatinine Urine 29.6 mg/dL; Total Protein Urine Random 14 mg/dL; Ur Ttl Prot Creatinine Ratio 0.47 mg/mg (0-0.20)
[2020-10-17 12:56] VITALS: BP 126/70; PULSE 79
--- NOTE | ~2020-10-21 | US_ITS ---
EXAMINATION: US OB limited DATE: 10/10/2020 13:32 INDICATION: Hypertension. Third trimester. TECHNIQUE: Real-time ultrasound of the pelvis was performed. COMPARISON: Ultrasound 10/06/2020 FINDINGS: There is a single fetus in vertex presentation. The placenta is posterior and fundal. heart ra te is 121 beats per minute (bpm). The amniotic fluid index is 17.7 cm cm, which is normal. IMPRESSION: 1. Single living fetus in vertex presentation. 2. Normal amniotic fluid index. Reviewed, dictated and finalized at location A. TER CUT OFF OPERATOR
--- NOTE | ~2020-10-21 | US_ITS ---
US OB limited DATE: 09/27/2020 11:59 INDICATION: Amniotic fluid index measurement TECHNIQUE: Real-time imaging and Doppler analysis COMPARISON: 03/29/2020 obstetrical ultrasound examination FINDINGS: Live garcia intrauterine gestation, fetus in longitudinal lie, vertex presentation. Feta l heart rate 171 bpm. Posterior placenta. Amniotic fluid index measures 13.2 cm. (5th percentile SHELLY: 8.3 cm; 95th percentile SHELLY: 24.5 cm). IMPRESSION: Amniotic fluid index measures 13.2 cm, within normal range Reviewed, dictated and finalized at Location A. Reviewed, dictated and finalized at location A. URER MACHINE
--- NOTE | ~2020-10-21 | US_ITS ---
US OB limited 10/14/2020 16:25 Indication: Evaluate amniotic fluid index Procedure: High-resolution Limited obstetrical ultrasound Comparison: 10/10/2020 Findings: There is a single living intrauterine in vertex presentation. heart rate is 150 BPM. Placenta is posterior without previa. Amniotic fluid index is normal measuring 17 cm (rosio l range for gestational age is 7.9-24.9 cm). Impression: 1: Normal SHELLY measures 17 cm. Reviewed, dictated and finalized at location A. ICE MECHANIC Impression: 1: Normal SHELLY measures 17 cm.
--- NOTE | ~2020-10-21 | US_ITS ---
EXAMINATION: US OB follow up DATE: 10/03/2020 10:12 INDICATION: Hypertension. Third trimester. TECHNIQUE: Real-time ultrasound of the pelvis was performed. COMPARISON: Ultrasound 09/30/2020, 03/29/2020 FINDINGS: There is a single living fetus in vertex presentation. The placenta is posterior. heart rate i s 127 beats per minute (bpm). The amniotic fluid index is 14.4 cm, which is normal. The following biometric data were obtained: Biparietal diameter (BPD): 8.5 cm; head circumference (HC): 30.1 cm; abdominal circumference (AC): 30 .4 cm; femur length (FL): 6.7 cm. These measurements are concordant. Estimated weight is 2381 g +/- 357 g, which correlates with 51st percentile when 11/14/20 is use d as estimated date of delivery. As single measurements, these parameters are each equal to the following estimated gestational ages: BPD: 34 weeks 3 days. HC: 33 weeks 2 days. AC: 34 weeks 3 days. FL: 34 weeks 2 days. estimated gestational age based solely on measurements from this exam is 34 weeks 1 days +/- 2 weeks 3 days. IMPRESSION: 1. Single living fetus in vertex presentation. 2. Estimated weight is 2381 g +/- 357 g, which correlates with 51st percentile when 11/14/20 is used as estimated date of delivery. This date was set by ultrasound on 03/29/2020. Reviewed, dictated and finalized at location A. T SERVICES IMPRESSION: 1. Single living fetus in vertex presentation. 2. Estimated weight is 2381 g +/- 357 g, which correlates with 51st perc entile when 11/14/20 is used as estimated date of delivery. This date was set by ultrasound on 03/29/2020.
--- NOTE | ~2020-10-21 | US_ITS ---
US OB limited DATE: 10/17/2020 12:02 INDICATION: Measure amniotic fluid index TECHNIQUE: Real-time imaging and Doppler analysis COMPARISON: 10/14/2020 limited obstetrical ultrasound FINDINGS: Live garcia intrauterine gestation, fetus in vertex presentation, longitudinal lie. heart rate 147 bpm. Posterior placenta. Normal amniotic fluid index of 17.6 cm. (5th percentile: 7.7 cm; 95th percentile: 24.9 cm.) IMPRESSION: Normal amniotic fluid index of 17.6 cm Reviewed, dictated and finalized at Location A. Reviewed, dictated and finalized at location A. C D AREA SUPERVISOR
--- NOTE | ~2020-10-21 | US_ITS ---
EXAMINATION: US OB limited DATE: 09/30/2020 11:14 INDICATION: Hypertension during third trimester . Assess amniotic fluid index. TECHNIQUE: Real-time ultrasound of the pelvis was performed. The interpreting radiologist was not pre sent for the study. COMPARISON: 09/27/2020 FINDINGS: There is a single living fetus in vertex presentation. The placenta is posterior fundal. heart rate is 137 beats per minute (bpm). The amniotic fluid index is 13.3 cm, which is normal (5th%-95%: 8.3-24.5 cm at 33 weeks estimated gestational age) . IMPRESSION: 1. Single living fetus in vertex presentation with heart rate of 137 bpm. 2. Normal amniotic fluid index of 13.3 cm. Reviewed, dictated and finalized at location A. SHOP MANAGER IMPRESSION: 1. Single living fetus in vertex presentation with heart rate of 137 bpm . 2. Normal amniotic fluid index of 13.3 cm.
--- NOTE | ~2020-10-21 | US_ITS ---
US OB limited 10/06/2020 14:36 Indication: Gestational hypertension Procedure: High-resolution Limited obstetrical ultrasound Comparison: 10/03/2020 Findings: There is a single living intrauterine in vertex presentation. heart rate is 147 BPM. Placenta is posterior without previa. Amniotic fluid index is normal measuring 13.7 cm (nor mal range for gestational age is 8.1-24.8 cm). Impression: 1: Single living intrauterine in vertex presentation. 2: Normal SHELLY measures 13.7 cm. Reviewed, dictated and finalized at location A. THCARE MARKET CONSULTANT Impression: 1: Single living intrauterine in vertex presentation. 2: Normal SHELLY measures 13.7 cm.
--- NOTE | ~2020-10-21 | US_ITS ---
EXAMINATION: US OB limited DATE: 10/21/2020 09:32 INDICATION: Assess amniotic fluid index during third trimester of TECHNIQUE: Real-time ultrasound of the pelvis was performed. The interpreting radiologist was not pre sent for the study. COMPARISON: 10/17/2020 FINDINGS: There is a single living fetus in vertex presentation. The placenta is posterior. heart rate i s 142 beats per minute (bpm). The amniotic fluid index is 12.4 cm, which is normal (5th%-95%: 7.7-24. 9 cm at 36 weeks estimated gestational age). IMPRESSION: 1. Single living fetus in vertex presentation with heart rate of 142 bpm. 2. Normal amniotic fluid index of 12.4 cm. Reviewed, dictated and finalized at location A. OSING MACHINE OPERATOR IMPRESSION: 1. Single living fetus in vertex presentation with heart rate of 142 bpm . 2. Normal amniotic fluid index of 12.4 cm.
[2020-10-21 08:30] VITALS: BP 128/76; PULSE 99
--- NOTE | 2020-10-21 09:51 | PC.NURSE ---
Spoke with Dr. Loredo, patient discharged to home. No new orders
== END 2020-10-25 07:46 | disposition home or self-care (01) ==
LOC: ANHOBOP 07:58
PROVIDERS: PCP Nurse Practitioner Family; Visit Provider Obstetrics & Gynecology
DX: O13.3 Gestational [pregnancy-induced] hypertension without significant proteinuria, third trimester (principal); Z3A.33 33 weeks gestation of pregnancy; Z3A.34 34 weeks gestation of pregnancy; Z3A.35 35 weeks gestation of pregnancy; Z3A.37 37 weeks gestation of pregnancy
CPT/HCPCS: 36415; 59025; 76815; 76816; 80053; 81001; 82570; 84156; 84550; 85025; 87086

== ENCOUNTER 2020-10-24 | Inpatient (IN) | payer BC, OTHER, SELFPAY ==
[2020-10-24] VITALS (72 sets, daily range): BP systolic 100–148; BP diastolic 49–93; PULSE 72–120; RESP 17–20; TEMP 36.4–37.3; O2SAT 98–100; BMI 33.0
--- NOTE | 2020-10-24 | LDADM ---
This patient, Gerri Calvo, was admitted to Labor/Delivery/Recovery 108 on 10/24/20 at 00:00. Plans for labor, pain management and were discussed with patient. Patient/family oriented to hospital policies and general routines including ID bracelet, bed and alarms, visiting hours, pain management, procedures, bathroom and other care routines, personal items, smoking policy, room service/diet and guest tray routines, infant security routines, and visiting hours. Patient/Family are encouraged to report perceived risks to care and to ask questions if they do not understand what they are told or what they should do. See OBIX for further documentation.
[2020-10-24 00:48] LABS: Basophils Percent Auto 0.4 % (0.2-1.2); Eosinophils Absolute Auto 0.1 K/mm3 (0-0.3); Eosinophils Percent Auto 0.9 % (0-4.4); Hematocrit 32.6 % (37.0-47.0); Hemoglobin 11.1 g/dL (12.0-15.0); Immature Granulocyte Absolute 0.07 K/mm3 (0.00-0.031); Immature Granulocyte Percent A 0.6 % (0-0.5); Lymphocytes Absolute Auto 2.36 K/mm3 (0.9-3.2); Lymphocytes Percent Auto 20.8 % (18.3-44.2); Mean Corpuscular Hemoglobin 29.6 pg (26-34); Mean Corpuscular Volume 86.9 fl (80-100); Mean Platelet Volume 10.3 fl (7.4-10.4); Monocytes Absolute Auto 0.7 K/mm3 (0.1-0.6); Monocytes Percent Auto 5.7 % (2.6-8.5); Neutrophils Absolute Auto 8.1 K/mm3 (1.3-6.7); Neutrophils Percent Auto 71.6 % (45.5-73.1); Platelet Count Result 249 k/mm3 (150-375); Red Blood Count 3.75 M/mm3 (4.2-5.4); Red Cell Distribution Width 14.9 % (11.5-14.5); White Blood Count 11.3 K/mm3 (4.5-10.0)
[2020-10-24] MEDS: DINOPROSTONE 10 MG VAG INSERT VAGINAL (00:54)
[2020-10-24 01:00] LABS: Alanine Aminotransferase 18 U/L (4-35); Albumin Level 3.4 g/dL (3.5-5.1); Alkaline Phosphatase 130 U/L (38-126); Anion Gap 6 mmol/L (8-16); Aspartate Amino Transferase 29 U/L (14-36); Bilirubin,Total 0.3 mg/dL (0.2-1.3); Blood Urea Nitrogen 15 mg/dL (7-17); Calcium 9.7 mg/dL (8.4-10.2); Carbon Dioxide 23 mmol/L (22-30); Chloride 104 mmol/L (98-107); Estimated Glomerular Filt Rate > 60; Glucose 98 mg/dL (65-105); Potassium 4.4 mmol/L (3.4-5.0); Sodium 133 mmol/L (137-145); Uric Acid 6.2 mg/dL (2.5-7.5)
[2020-10-24] MEDS: AMPICILLIN 2 GM/NS 100 ML 2 GM/100 ML BAG IVPB (01:00)
[2020-10-24] MEDS: LACTATED RINGERS 1,000 ML 125 ML IV CONT ×2 (01:01→16:00)
[2020-10-24] MEDS: AMPICILLIN 1 GM/NS 50 ML 1 GM/50 ML BAG IVPB ×4 (04:57→17:38)
--- NOTE | 2020-10-24 05:03 | WPDANESEPP ---
Anes - Eval Pre Procedure Procedure: Labor epiodural Date/Time: 10/24/20 05:03 Surgeon: Haris Preop Diagnosis: ABD pain with contractions Pre Op Diagnosis: IOL Patient Data Age: 30 Gender: F Height: 5 ft 5 in Weight: 90 kg Last Vital Signs Temp 97.6 F 10/24/20 02:56 Pulse 78 10/24/20 02:46 Resp 18 10/24/20 02:56 BP 108/57 L 10/24/20 02:46 Allergies Allergy/AdvReac Type Severity Reaction Status Date / Time doxycycline Allergy Severe Anaphylactic Verified 10/17/20 09:39 Shock spironolactone Allergy Severe Anaphylactic Verified 10/17/20 09:39 Shock Home Medications Medication Instructions Recorded Confirmed Type breast pump #1 ea 08/15/20 10/24/20 Rx pediatric multivitamin [Child Chew 2 tablet PO DAILY 10/24/20 10/24/20 History Multivitamin] Laboratory Tests 10/24/20 10/24/20 10/24/20 00:40 00:40 00:40 WBC 11.3 K/mm3 H K/mm3 (4.5-10.0) RBC 3.75 M/mm3 L M/mm3 (4.2-5.4) Hgb 11.1 g/dL L g/dL (12.0-15.0) Hct 32.6 % L % (37.0-47.0) MCV 86.9 fl fl (80-100) MCH 29.6 pg pg (26-34) MCHC 34.0 g/dl g/dl (32-36) RDW 14.9 % H % (11.5-14.5) Plt Count 249 k/mm3 k/mm3 (150-375) MPV 10.3 fl fl (7.4-10.4) Immature Gran % (Auto) 0.6 % H % (0-0.5) Neut % (Auto) 71.6 % % (45.5-73.1) Lymph % (Auto) 20.8 % % (18.3-44.2) Hubbard % (Auto) 5.7 % % (2.6-8.5) Eos % (Auto) 0.9 % % (0-4.4) Baso % (Auto) 0.4 % % (0.2-1.2) Lymph # (Auto) 2.36 K/mm3 K/mm3 (0.9-3.2) Hubbard # (Auto) 0.7 K/mm3 H K/mm3 (0.1-0.6) Eos # (Auto) 0.1 K/mm3 K/mm3 (0-0.3) Baso # (Auto) 0.0 K/mm3 K/mm3 (0.0-0.1) Abs Immat Gran (auto) 0.07 K/mm3 H K/mm3 (0.00-0.031) Absolute Neuts (auto) 8.1 K/mm3 H K/mm3 (1.3-6.7) Absolute Nucleated RBC 0.0 K/mm3 K/mm3 (0.0-0.012) Nucleated RBC % 0.0 % % (0.0-0.2) Sodium Potassium Chloride Carbon Dioxide Anion Gap BUN Creatinine Estim Creat Clear Calc Estimated GFR Glucose Uric Acid Calcium Total Bilirubin AST ALT Alkaline Phosphatase Total Protein Albumin RPR Pending Blood Type B Negative Antibody Screen Negative 10/24/20 00:40 WBC RBC Hgb Hct MCV MCH MCHC RDW Plt Count MPV Immature Gran % (Auto) Neut % (Auto) Lymph % (Auto) Hubbard % (Auto) Eos % (Auto) Baso % (Auto) Lymph # (Auto) Hubbard # (Auto) Eos # (Auto) Baso # (Auto) Abs Immat Gran (auto) Absolute Neuts (auto) Absolute Nucleated RBC Nucleated RBC % Sodium 133 mmol/L L mmol/L (137-145) Potassium 4.4 mmol/L mmol/L (3.4-5.0) Chloride 104 mmol/L mmol/L (98-107) Carbon Dioxide 23 mmol/L mmol/L (22-30) Anion Gap 6 mmol/L L mmol/L (8-16) BUN 15 mg/dL D mg/dL (7-17) Creatinine 0.50 mg/dL L mg/dL (0.7-1.0) Estim Creat Clear Calc Not Reportable Estimated GFR > 60 (59 - ) Glucose 98 mg/dL mg/dL (65-105) Uric Acid 6.2 mg/dL mg/dL (2.5-7.5) Calcium 9.7 mg/dL mg/dL (8.4-10.2) Total Bilirubin 0.3 mg/dL mg/dL (0.2-1.3) AST 29 U/L U/L (14-36) ALT 18 U/L U/L (4-35) Alkaline Phosphatase 130 U/L H U/L (38-126) Total Protein 7.0 g/dL g/dL (6.3-8.2) Albumin 3.4 g/dL L g/dL (3.5-5.1) RPR Blood Type Antibody Screen Patient hx anesthesia problems: none Family hx anesthesia problems: none [facility] Past Medical History Medical History (Reviewed 01
[2020-10-24] MEDS: OXYTOCIN 30 UNITS/NS 500 ML 30 UNITS/500 ML BAG IV CONT (13:26)
[2020-10-24] MEDS: fentaNYL CITRATE INJ (*CRX) 100 MCG/2 ML VIAL 50 MCG IV PUSH (16:00)
--- NOTE | 2020-10-24 17:57 | PM.IMHP ---
H&P: HPI History of Present Illness Date/Time: 10/24/20 17:57 Chief Complaint: Medical induction of labor. Narrative: Gerri Calvo is a 30 year old female at 37 weeks admitted for MIL due to gestational hypertension. She declines severe headache scotomata or RUQ pain. LMP 02/08/20 with EDC 11/14/20 consistent with 7 week ultrasound. Review of Systems Review of Systems: All systems reviewed & are unremarkable except as noted in HPI and below Constitutional: Constitutional: Reports no additional constitutional complaints and Denies headache(s) Eyes: Eyes: Denies spots in vision ENT: Reports system reviewed and no additional complaints, except as documented and Denies headache(s) Cardiovascular: Cardiovascular: Denies chest pain and Denies dyspnea Respiratory: Respiratory: Denies dyspnea Gastrointestinal: Gastrointestinal: Reports no additional gastrointestinal complaints Genitourinary: Genitourinary: Reports amenorrhea Musculoskeletal: Musculoskeletal: Reports no additional musculoskeletal complaints Integumentary/Breasts: Skin/Breast: Denies breast mass and Denies rash Neurologic: Denies headache(s) Psychiatric: Psychiatric: Reports no additional psychiatric complaints [facility] Past Medical History Medical History Endometriosis Gestational hypertension History of pre-eclampsia in prior , currently Vaginal delivery Family History Family History Grandparent Family history of elevated blood lipids Diabetes mellitus Family history of coronary artery disease Hypertension Cerebrovascular accident Mother Hypertension Mother Seizure Bleeding disorder Social History Social History Smoking status: Never smoker Second hand tobacco smoke exposure: Yes Smoking end date: 10/20/12 Alcohol intake: never Substance use: never Gender identity (if verbalized by the patient): Female Spiritual care concerns: No Meds Home Medications and Allergies Home Medications Medication Instructions Recorded Confirmed Type breast pump #1 ea 08/15/20 10/24/20 Rx pediatric multivitamin [Child Chew 2 tablet PO DAILY 10/24/20 10/24/20 History Multivitamin] Allergies Allergy/AdvReac Type Severity Reaction Status Date / Time doxycycline Allergy Severe Anaphylactic Verified 10/17/20 09:39 Shock spironolactone Allergy Severe Anaphylactic Verified 10/17/20 09:39 Shock Vital Signs Vital Signs - 24 hr 10/24/20 00:44 10/24/20 00:45 10/24/20 01:02 Temperature 98.2 F Pulse Rate 93 87 Respiratory Rate 20 Blood Pressure 125/81 134/90 Pulse Oximetry 10/24/20 01:15 10/24/20 01:30 10/24/20 01:45 Temperature Pulse Rate 83 90 92 Respiratory Rate Blood Pressure 133/93 H 127/85 125/79 Pulse Oximetry 10/24/20 02:00 10/24/20 02:15 10/24/20 02:30 Temperature Pulse Rate 84 76 72 Respiratory Rate Blood Pressure 114/65 108/56 L 116/62 Pulse Oximetry 10/24/20 02:46 10/24/20 02:56 10/24/20 06:59 Temperature 97.6 F Pulse Rate 78 82 Respiratory Rate 18 Blood Pressure 108/57 L 131/62 Pulse Oximetry 10/24/20 07:16 10/24/20 07:31 10/24/20 07:46 Temperature Pulse Rate 77 85 86 Respiratory Rate Blood Pressure 111/64 124/63 109/56 L Pulse Oximetry 10/24/20 08:00 10/24/20 08:31 10/24/20 08:46 Temperature Pulse Rate 78 89 88 Respiratory Rate Blood Pressure 118/74 134/88 115/71 Pulse Oximetry 10/24/20 09:00 10/24/20 09:16 10/24/20 09:30 Temperature Pulse Rate 83 89 92 Respiratory Rate Blood Pressure 112/81 123/89 129/89 Pulse Oximetry 10/24/20 09:46 10/24/20 10:01 10/24/20 13:00 Temperature 98.3 F Pulse Rate 97 96 Respiratory Rate Blood Pressure 125/79 112/74 Pulse Oximetry 10/24/20 13:48 10/24/20 14:
--- NOTE | 2020-10-24 18:26 | PM.OBPRVD ---
OB - Delivery Note Procedure Delivery date: 10/24/20 Procedure: Spontaneous vaginal delivery. events: Induced HTN Intrapartal events: None Induction method: per pitocin protocol and per cervidil protocol Delivery augmentation: rupture of membranes (clear 1500) Delivery monitor: external FHT Route of delivery: Laceration Description: None Specimen: No Quantitative Blood Loss (ml): 150 Anesthesia type: Epidural Disposition: floor Complications: None Narrative: Patient admitted for medical induction of labor at 37 weeks for gestational hypertension. Her cervix was 1/50/-3. She had cervidil. Pitocin started approximately 1300. AROM approximately 1500 clear. She received epidural. She progressed to complete. She pushed twice and delivered a female infant. There was a loose nuchal cord manually reduced. Infant was vigorously crying upon delivery and placed on maternal abdomen. Delayed cord clamping for 45 sec until cord apulsatile. Cord blood and cord gases obtained. Placenta delivered spontaneously and intact. No lacerations. EBL 150cc. Patient tolerated procedure well. Baby Date of : 10/24/20 Time of : 18:11 Weeks of gestation at delivery: 37 Infant gender: Female presentation: vertex position: Right Occiput Anterior Placenta delivery description: Spontaneous cord vessel description: Nuchal Cord (once manually reduced.) score one minute: 9 score five minutes: 9
[2020-10-24] MEDS: OXYTOCIN 30 UNITS/NS 500 ML 30 UNITS/500 ML BAG 125 UNITS IV CONT (18:41)
[2020-10-24] MEDS: IBUPROFEN 600 MG TABLET PO (20:40)
[2020-10-24] MEDS: BENZOCAINE 20% AER SPR (*SP) 56 GM CAN 1 SPRAY TOPICAL (20:40)
[2020-10-24] MEDS: WITCH HAZEL 40 PADS 1 PAD TOPICAL (20:40)
--- NOTE | 2020-10-24 21:00 | OBPPTRN ---
Patient transferred to post room #283 via wheelchair with in crib. Support person present. Oriented to unit, room, information board, rooming in, admission packet and security measures. Patient verbalizes understanding.
[2020-10-25 05:54] LABS: Hematocrit 28.1 % (37.0-47.0); Hemoglobin 9.4 g/dL (12.0-15.0)
[2020-10-25 07:04] LABS: Rapid Plasma Reagin Non-Reactive (NonReactive)
--- NOTE | 2020-10-25 07:34 | WPDANLDPN2 ---
Anes-Prog Note L&D Date/Time: 10/25/20 07:34 Comfortable throughout: labor and delivery Neuraxial method: epidural Epidural/Spinal procedure site: clean & non-tender Neuro status: Neuro function grossly intact. Cardiovascular status: normal Respiratory status: normal Airway patency: baseline Mental status: baseline Post-Op hydration status: normal Vital Signs: Last Vital Signs Temp 36.8 C 10/24/20 17:00 Pulse 100 10/24/20 20:30 Resp 18 10/24/20 02:56 BP 122/85 10/24/20 20:30 Pulse Ox 100 10/24/20 16:46 Pain score (VAS): 10/29 I/O: Intake & Output 10/24/20 10/24/20 10/25/20 15:59 23:59 07:59 Intake Total 1100 500 Output Total 107 Balance 1100 500 -107 Post-procedural complaints: none Patient feedback: Patient satisfied with anesthetic care.
[2020-10-25] MEDS: DOCUSATE SODIUM 100 MG CAPSULE PO ×3 (08:19→15:45)
[2020-10-25] MEDS: MULTIVITS W-FE,MIN CHEWABLE TABLET 2 TABLET PO (08:19)
[2020-10-25] MEDS: IBUPROFEN 600 MG TABLET PO ×2 (08:20→15:44)
[2020-10-25 08:30] VITALS: BP 135/77; PULSE 95; RESP 16; TEMP 36.8; O2SAT 98
--- NOTE | 2020-10-25 10:18 | PC.NURSE ---
Mother verbalizes she is able to independently pump. She denies any nipple discomfort, is feeding breastmilk and formula and waking to feed if needed. Infant is currently meeting outcomes for weight, output, jaundice and feeding frequencies at this point. Mother states she feels confident to continue pumping at home. Reviewed transition to breast milk, signs of adequate intake, and engorgement/relief. Instructed to call ICP if intake/output less than required. Reviewed community resources on the [facility] website and in the Mom/Baby guide. Information on outpatient services provided. Mother has no further questions at this time. Consulted with patient, reviewed infant feeding cues, frequencies, duration of feedings, feeding elimination flow sheet, and signs of adequate intake. Disscussed stimulation techniques to wake infant for feeding. Instructed feeding should be initiated three hours from start of last feeding or if feeding cues are noted before. Mother voiced understanding of information shared. Mother using her own breast pump, states she is supplementing with formula and her breastmilk and will be pumping and feeding at home. Instructions given on breast pump care and usage, pumping schedule, nipple care, and collection and storage of breast milk. Encouraged [id number], breast massage and manual expression to stimulate supply. Encouraged patient to call out with next pump to assess for correct flange size, placement and draw or if she would like to put the infant to breast. Patient verbalizes and demonstrates understanding of instructions.
--- NOTE | 2020-10-25 12:22 | PM.OBPNVD ---
OB - PN: Subj Subjective Date/time seen: 10/25/20 12:22 She is pumping. No severe headache, scotomata or RUQ pain. No lightheadedness or dizziness. Patient comments: pain well controlled, tolerating diet and other (Decreasing lochia.) baby status: doing well OB - PN: Obj Data Labs CBC & Chem 7: 10/25/20 03:57 10/24/20 00:40 Labs: Laboratory Results - last 24 hr 10/24/20 10/25/20 00:40 03:57 Hgb 9.4 L Hct 28.1 L RPR Non-reactive OB - PN A/P Plan day: 1 Plan: routine care Comments: Patient doing well. No signs of pre-eclampsia. Asymptomatic anemia. Iron supplement. Anticipate discharge tomorrow. Time Spent With Patient Time: Total time spent is greater than 50% in coordination of care (as documented) at patient's floor/unit and/or counseling patient: Exam Psych: Affect: normal affect Other: Abd: fundus firm below umbilicus, nontender Perineum: healing Ext: nontender
[2020-10-25] MEDS: POLYSACCHARIDE IRON COMPLEX 150 MG CAPSULE (15:44)
[2020-10-25] MEDS: POLYSACCHARIDE IRON COMPLEX 150 MG CAPSULE PO (15:45)
[2020-10-25 20:20] VITALS: BP 116/72; PULSE 75; RESP 16; TEMP 36.9; O2SAT 98
[2020-10-26] MEDS: POLYSACCHARIDE IRON COMPLEX 150 MG CAPSULE PO (08:29)
[2020-10-26] MEDS: MULTIVITS W-FE,MIN CHEWABLE TABLET 2 TABLET PO (08:29)
[2020-10-26] MEDS: DOCUSATE SODIUM 100 MG CAPSULE PO (08:29)
[2020-10-26] MEDS: IBUPROFEN 600 MG TABLET PO (08:34)
[2020-10-26 08:50] VITALS: BP 132/81; PULSE 75; RESP 18; TEMP 37; O2SAT 98
--- NOTE | 2020-10-26 11:23 | PC.NURSE ---
Spoke with patient around 945 today, patient preparing for discharge. States infant has been going to breast some as well as her pumping. Encouraged mom to pump every 3 hours if not going to breast. Hands on pumping discussed. Mother verbalizes she is able to independently latch with appropriate positioning/alignment. She denies any nipple discomfort, is feeding as required and waking infant to feed if needed. has had adequate feedings mostly via bottle in the past 24 hours, and is currently meeting outcomes for weight, output, jaundice and feeding frequencies. Encouraged mom to increase feedings to as much as desires as her needs increase. Mother states she feels confident to continue effective or pumping at home. Reviewed transition to breast milk, signs of adequate intake, and engorgement/relief. Instructed to call ICP if intake/output less than required. Reviewed community resources on the [facility] website and in the Mom/Baby guide. Information on outpatient services provided. Mother has no further questions at this time.
--- NOTE | 2020-10-26 12:49 | PM.OBPNVD ---
OB - PN: Subj Subjective Date/time seen: 10/26/20 12:49 No headache scotomata or RUQ pain. Patient comments: pain well controlled, tolerating diet and other (Decreasing lochia.) [place] baby status: doing well and nursing well OB - PN: Obj Data Labs CBC & Chem 7: 10/25/20 03:57 10/24/20 00:40 OB - PN A/P Plan day: 2 Plan: discharge home and other Comments: Patient doing well. Follow up 4-6 weeks. Discharge instructions provided. Time Spent With Patient Time: Total time spent is greater than 50% in coordination of care (as documented) at patient's floor/unit and/or counseling patient: Time with patient: less than 15 minutes Exam Psych: Affect: normal affect Other: Abd: fundus firm below umbilicus, nontender Perineum: healing Ext: nontender
--- NOTE | 2020-10-26 12:50 | PM.DS ---
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 She was started on Pitocin the following morning. She had subsequent artificial rupture of membranes. She had an uncomplicated vaginal delivery. she did well. Her blood pressures were normal. She declined any headache scotomata or RUQ pain. She was discharged to home. Instructed on hypertension precautions. Time Spent with Patient Time attestation: Total time spent providing and/or coordinating discharge services: Exam Psych: Affect: normal affect Other: Abd: fundus firm below umbilicus, nontender Ext: nontender Discharge Plan Discharge Attending physician on discharge: Nithin Carballo Discharging Clinician: Nithin Carballo Anticipated Discharge Date/Time: 10/26/20 09:01 Patient Disposition: Home, Self-Care Activity: pelvic rest Diet: regular Discharge Instructions: Post vaginal delivey precautions. Pelvic rest for 4-6 weeks. Call for severe headache, spots in vision or right upper quadrant pain. Saturating more than a pad an hour. Temperature greater than 100.4, breast redness, pain and flu-like symptoms. Education: Mom and Baby Guide Given to: Mother Follow-Up: Call your delivering provider's office for an appointment to be seen in: 6 Weeks Mom and baby should come to the [facility] for the follow-up appointment. Appointment Date/Time: October 27, 2020 at 8:00 am What to expect at your follow-up visit: Blood Pressure Check Physical Assessment Call [phone] if you are unable to keep your appointment time. BREAST CARE: * Wear a snug supportive bra. * For engorgement discomfort: Breast Feeding: * Apply warm moist washcloths * Express milk as needed to relieve engorgement * Wear loose clothing Bottle Feeding: * May apply ice packs * For sore nipples: * Identify correct latch-on * Apply warm moist washcloths before and after nursing * Air dry nipples after nursing * May apply Lansinoh cream to nipples EPISIOTOMY/PERINEAL CARE: * Until bleeding stops, use your shruthi bottle after urinating * Change your pad frequently throughout the day * You may take sitz baths several times a day (fill your bathtub with warm water and soak for 20 minutes.) Do NOT bathe in the water * No tub baths until seen by your physician - You may shower ACTIVITY: * Rest as much as possible. * Do not exercise or lift anything heavier than your baby (such as laundry or other children.) * Avoid stairs or driving as much as possible. * Do not put anything into the vagina. No douching, tampons, or sexual activity until seen by physician. NOTIFY PHYSICIAN IF YOU HAVE ANY QUESTIONS OR IF ANY OF THE FOLLOWING SYMPTOMS OCCUR: * If your episiotomy or incision becomes red, swollen, or more painful than what you have experienced in the hospital. * If your vaginal bleeding becomes foul smelling. * If your vaginal bleeding becomes more heavy than a period or if your bleeding changes from pink to bright red. However, you may pass an occasional walnut-sized clot once or twice for the first week . * If you experience a sharp, shooting pain in you calves. * If you discover a hard, reddened area on your breast or if you experience flu-like symptoms. DIET: * Eat regular, well-balanced meals. * Drink plenty of fluids daily. If , drink to thirst. Stand A
[2020-10-27 08:45] VITALS: BP 147/80; PULSE 87; RESP 20; TEMP 37.1; O2SAT 100
== END 2020-10-26 11:42 | disposition home or self-care (01) | DRG 807 ==
LOC: ANHLDR 00:02 → ANHOB2 21:08
PROVIDERS: Admitting Provider Obstetrics & Gynecology; PCP Nurse Practitioner Family; Visit Provider Obstetrics & Gynecology
DX: O13.4 Gestational [pregnancy-induced] hypertension without significant proteinuria, complicating childbirth (principal); Z37.0 Single live birth; O99.824 Streptococcus B carrier state complicating childbirth; O69.81X0 Labor and delivery complicated by cord around neck, without compression, not applicable or unspecified; Z3A.37 37 weeks gestation of pregnancy
CPT/HCPCS: 36415; 80053; 84550; 85014; 85018; 85025; 86592; 86850; 86900; 86901; A9270; J0290; J2590; J2795; J3010; J7120

== ENCOUNTER 2021-05-22 09:54 | Outpatient (CLI) | payer OTHER, SELFPAY ==
[2021-05-22 10:33] LABS: Alanine Aminotransferase 26 U/L (4-35); Albumin Level 4.4 g/dL (3.5-5.1); Alkaline Phosphatase 75 U/L (38-126); Anion Gap 10 mmol/L (8-16); Aspartate Amino Transferase 33 U/L (14-36); Bilirubin,Total 0.5 mg/dL (0.2-1.3); Blood Urea Nitrogen 10 mg/dL (7-17); Calcium 9.3 mg/dL (8.4-10.2); Carbon Dioxide 25 mmol/L (22-30); Chloride 105 mmol/L (98-107); Cholesterol 200 mg/dL (0-200); Estimated Glomerular Filt Rate > 60; Glucose 87 mg/dL (65-110); HDL Direct 50 mg/dL; Potassium 4.3 mmol/L (3.4-5.0); Sodium 140 mmol/L (137-145); Triglycerides 111 mg/dL (<150)
[2021-05-22 10:44] LABS: LDL Cholesterol Direct 115 mg/dL
== END 2021-05-22 09:55 | disposition home or self-care (01) ==
LOC: ANHLAB 09:56
PROVIDERS: PCP Family Medicine; Visit Provider Physician Assistant Medical
DX: E78.1 Pure hyperglyceridemia (principal)
CPT/HCPCS: 36415; 80053; 80061

== ENCOUNTER 2022-12-19 09:24 | Outpatient (CLI) | payer OTHER, SELFPAY ==
[2022-12-19 09:43] LABS: Basophils Percent Auto 0.6 % (0.2-1.2); Eosinophils Absolute Auto 0.1 K/mm3 (0-0.3); Eosinophils Percent Auto 1.5 % (0-4.4); Hematocrit 41.9 % (37.0-47.0); Immature Granulocyte Absolute 0.01 K/mm3 (0.00-0.031); Immature Granulocyte Percent A 0.1 % (0-0.5); Lymphocytes Absolute Auto 1.99 K/mm3 (0.9-3.2); Lymphocytes Percent Auto 27.5 % (18.3-44.2); Mean Corpuscular HGB Conc 33.4 g/dl (32-36); Mean Corpuscular Hemoglobin 30.5 pg (26-34); Mean Corpuscular Volume 91.3 fl (80-100); Mean Platelet Volume 9.2 fl (7.4-10.4); Monocytes Absolute Auto 0.3 K/mm3 (0.1-0.6); Monocytes Percent Auto 4.7 % (2.6-8.5); Neutrophils Absolute Auto 4.8 K/mm3 (1.3-6.7); Neutrophils Percent Auto 65.6 % (45.5-73.1); Platelet Count Result 240 k/mm3 (150-375); Red Blood Count 4.59 M/mm3 (4.2-5.4); Red Cell Distribution Width 12.5 % (11.5-14.5); White Blood Count 7.2 K/mm3 (4.5-10.0)
[2022-12-19 09:54] LABS: Alanine Aminotransferase 30 U/L (6-35); Albumin Level 4.3 g/dL (3.5-5.1); Alkaline Phosphatase 63 U/L (38-126); Anion Gap 4 mmol/L (8-16); Aspartate Amino Transferase 26 U/L (14-36); Bilirubin,Total 0.6 mg/dL (0.2-1.3); Blood Urea Nitrogen 12 mg/dL (7-17); Calcium 8.6 mg/dL (8.4-10.2); Carbon Dioxide 30 mmol/L (22-30); Chloride 103 mmol/L (98-107); Cholesterol 214 mg/dL (0-200); Estimated Glomerular Filt Rate > 60; Glucose 89 mg/dL (65-110); HDL Direct 52 mg/dL; Potassium 4.2 mmol/L (3.4-5.0); Sodium 137 mmol/L (137-145); Triglycerides 100 mg/dL (<150)
[2022-12-19 10:03] LABS: INR 0.9; Partial Thromboplastin Time 24.8 SECONDS (22.3-36.8)
[2022-12-19 10:05] LABS: LDL Cholesterol Direct 132 mg/dL
[2022-12-28 12:46] LABS: Factor V (Leiden) Mutation NEGATIVE
== END 2022-12-19 09:25 | disposition home or self-care (01) ==
PROVIDERS: PCP Family Medicine; Visit Provider Physician Assistant Medical
DX: E78.5 Hyperlipidemia, unspecified (principal); Z83.2 Family history of diseases of the blood and blood-forming organs and certain disorders involving the immune mechanism; R06.09 Other forms of dyspnea; E78.1 Pure hyperglyceridemia
CPT/HCPCS: 36415; 80053; 80061; 81241; 84443; 85025; 85303; 85306; 85610; 85730

== ENCOUNTER 2023-01-24 19:26 | Emergency (ER) | payer OTHER, SELFPAY ==
--- NOTE | 2023-01-24 19:34 | ED.URI ---
HPI - URI/Sore Throat General Chief Complaint: Upper Respiratory Infection Stated Complaint: COUGH/CONGESTION/SINUS PRESSURE Time Seen by Provider: 01/24/23 19:35 Source: patient Mode of arrival: ambulatory Limitations: no limitations History of Present Illness HPI Narrative: 32 yo F presents with c/o nasal congesiton, cough, PND, sinus and ear pressure for several weeks. States today symptoms worse with chills, bodyaches, feeling fatigued. Not taking any OTC meds to treat symptoms. Took one claritin at work today with no relief of symptoms. afebrile. Denies N/v/d. All systems reviewed and negative except as noted above. Related Data Home Medications Medication Instructions Recorded Confirmed lactobacillus combination no.4 3 3,000 mmu cells PO DAILY 05/21/21 01/24/23 billion cell capsule (Probiotic) multivit with min-folic 1 tablet PO DAILY 05/21/21 01/24/23 acid-lutein 200 mcg-137.5 mcg chewable tablet (Adult Multivitamin (w-lutein)) coenzyme Q10 10 mg capsule (Co 10 mg PO .QD 01/01/23 01/24/23 Q-10) magnesium 250 mg tablet 250 mg PO .Qd 01/01/23 01/24/23 omega 5-mew-xih-fish oil 1,000 mg 1 cap PO .QD 01/01/23 01/24/23 (120 mg-180 mg) capsule (Fish Oil) Allergies Allergy/AdvReac Type Severity Reaction Status Date / Time doxycycline Allergy Severe Anaphylactic Verified 01/24/23 19:33 Shock spironolactone Allergy Severe Anaphylactic Verified 01/24/23 19:33 Shock Review of Systems Review of Systems: CONSTITUTIONAL: Denies fever, chills, or sweats. Reports fatigue. EYES: Denies visual changes, redness, or discharge. ENT: Reports rhinorrhea, congestion, sore throat, and otalgia. CARDIOVASCULAR: Denies chest pain, palpitations, or edema. RESPIRATORY: Reports cough. Denies dyspnea. GASTROINTESTINAL: Denies abdominal pain, nausea, vomiting, or diarrhea. GENITOURINARY: Denies dysuria or hematuria. SKIN: Denies rash or itching. MUSCULOSKELETAL: Denies back pain, joint pain, or myalgia. NEUROLOGIC: Denies headache, numbness, or weakness. PSYCHIATRIC: Denies anxiety or depression. All other systems reviewed are negative, except as documented in HPI. FOR[facility]LY [facility] Past Medical History Medical History Anxiety BMI 22.0-22.9, adult BMI 25.0-25.9,adult BMI 26.0-26.9,adult BMI 27.0-27.9,adult Gestational hypertension History of pre-eclampsia in prior , currently Vaginal delivery Family History Family History Grandparent Family history of elevated blood lipids Diabetes mellitus Family history of coronary artery disease Hypertension Cerebrovascular accident Mother Hypertension Depression Mother Seizure Bleeding disorder Social History Social History Smoking status: Former smoker Second hand tobacco smoke exposure: Yes Smoking end date: 10/20/12 Alcohol intake: current Substance use: never Substance use type: does not use Gender identity (if verbalized by the patient): Female Spiritual care concerns: No Comments At time of signature, agree with nursing past medical, surgical, social and family history. There is no relevant family history pertinent to the presenting complaint. Exam Narrative: GENERAL: This is a well-nourished, well-developed patient, in no apparent distress. HEAD: normocephalic, atraumatic. EYES: PERRL. Sclera clear/white. Vision is grossly intact. EARS: External ears normal, auditory canals clear and without drainage, fluid with air bubble to bilateral TMs, dull light reflex. No erythema or perforation. NOSE: External nose normal erythematous to both nares, prelim nasal drainage. Bilateral maxillary and frontal sinus tenderness. THROAT: Mucous membranes moist, erythema to posterior pharynx with clear postnasal drainage. NECK: Neck supple, non-tender without lymphadenopathy, mas
[2023-01-24 19:37] VITALS: BP 119/80; PULSE 80; RESP 16; TEMP 37.2; O2SAT 100
== END 2023-01-24 19:55 | disposition home or self-care (01) ==
PROVIDERS: Emergency Provider Nurse Practitioner Family; PCP Family Medicine
DX: J01.90 Acute sinusitis, unspecified (principal); B96.89 Other specified bacterial agents as the cause of diseases classified elsewhere; F41.9 Anxiety disorder, unspecified; Z87.891 Personal history of nicotine dependence
CPT/HCPCS: 87804; 99213; G0463

== ENCOUNTER 2023-11-06 08:23 | Emergency (ER) | payer OTHER, SELFPAY ==
[2023-11-06 08:40] VITALS: BP 121/75; PULSE 111; RESP 16; TEMP 37.4; O2SAT 100
--- NOTE | 2023-11-06 08:46 | ED.URI ---
HPI - URI/Sore Throat General Chief Complaint: Upper Respiratory Infection Stated Complaint: CONGESTION/SOB/HOT/CHILLS/WEAKNESS/SORE THROAT Time Seen by Provider: 11/06/23 08:37 Source: patient and RN notes reviewed Mode of arrival: ambulatory Limitations: no limitations History of Present Illness HPI Narrative: Patient presents today complaining of body aches and mild dizziness since yesterday with headache, severe fatigue, chills, sweats, sore throat, and nasal congestion since this morning. She currently rates her pain 3/10. She has tried Zicam, green tea, elder Avina syrup, and vitamin-C without much relief. Patient is a nurse Related Data Home Medications Medication Instructions Recorded Confirmed lactobacillus combination no.4 3 3,000 mmu cells PO DAILY 05/21/21 11/06/23 billion cell capsule (Probiotic) multivit with min-folic 1 tablet PO DAILY 05/21/21 11/06/23 acid-lutein 200 mcg-137.5 mcg chewable tablet (Adult Multivitamin (w-lutein)) magnesium 250 mg tablet 250 mg PO .Qd 01/01/23 11/06/23 Allergies Allergy/AdvReac Type Severity Reaction Status Date / Time doxycycline Allergy Severe Anaphylactic Verified 11/06/23 08:28 Shock spironolactone Allergy Severe Anaphylactic Verified 11/06/23 08:28 Shock Review of Systems Review of Systems: CONSTITUTIONAL: + body aches, fatigue, chills, sweats EYES: Denies visual changes, redness, or discharge. ENT: Denies rhinorrhea, or otalgia.+ sore throat, congestion CARDIOVASCULAR: Denies chest pain, palpitations, or edema. RESPIRATORY: Denies cough or dyspnea. GASTROINTESTINAL: Denies abdominal pain, nausea, vomiting, or diarrhea. GENITOURINARY: Denies dysuria or hematuria. SKIN: Denies rash, itching, or wounds. MUSCULOSKELETAL: Denies back pain, joint pain, or myalgia. NEUROLOGIC: Denies numbness, tingling, or weakness.+ headache PSYCH: Denies depression or anxiety. [facility] Past Medical History Medical History Anxiety BMI 22.0-22.9, adult BMI 25.0-25.9,adult BMI 26.0-26.9,adult BMI 27.0-27.9,adult Gestational hypertension History of pre-eclampsia in prior , currently Vaginal delivery Family History Family History Grandparent Family history of elevated blood lipids Diabetes mellitus Family history of coronary artery disease Hypertension Cerebrovascular accident Mother Hypertension Depression Mother Seizure Bleeding disorder Social History Social History Smoking status: Former smoker Second hand tobacco smoke exposure: Yes Smoking end date: 10/20/12 Alcohol intake: current Substance use: never Substance use type: does not use Lack of Transportation: No Lack of Food: Never True Current Housing: I Have Housing Concerned About Future Housing: No Difficulty Paying Gas/Electric Bills: No Difficulty Paying for Meds: No Currently Unemployed: No Difficulty w/ Childcare or Family Care: No Gender identity (if verbalized by the patient): Female Spiritual care concerns: No Comments At time of signature, I have reviewed and agree with nursing past medical, surgical, social and family history unless otherwise noted. Please see nursing chart for further information. There is no relevant family history pertinent to the presenting complaint Exam Narrative: GENERAL: Mildly ill-appearing, well-nourished, and in no acute distress. HEAD: Normocephalic, atraumatic. EYES: EOMI. No redness or drainage. Conjunctivae normal. ENT: Mucous membranes pink and moist. Nares mildly congested. No rhinorrhea. TMs normal bilaterally. Throat normal. Uvula midline. NECK: Normal AROM. Supple. No lymphadenopathy. CHEST: No respiratory distress. Clear to auscultation. HEART: Regular rate and rhythm. No murmur apprec
== END 2023-11-06 09:00 | disposition home or self-care (01) ==
PROVIDERS: Emergency Provider Nurse Practitioner; PCP Family Medicine
DX: U07.1 COVID-19 (principal); Z87.891 Personal history of nicotine dependence
CPT/HCPCS: 87081; 87426; 87804; 87880; 99213; G0463

== ENCOUNTER 2024-05-15 12:26 | Emergency (ER) | payer OTHER, SELFPAY ==
[2024-05-15 12:37] VITALS: BP 127/79; PULSE 78; RESP 16; TEMP 36.7; O2SAT 100
--- NOTE | 2024-05-15 12:59 | ED.SKABFB ---
HPI - Skin/Abscess/Foreign Bdy General Chief complaint: Skin/Abscess/Foreign Body Stated complaint: Insect Bites Time Seen by Provider: 05/15/24 12:50 Source: patient, RN notes reviewed and old records reviewed Mode of arrival: ambulatory Limitations: no limitations History of Present Illness HPI narrative: 33 year old female who presents to [facility] care with one week duration of red raised scattered lesions on her ankles abdomen legs and gluteus area which are itchy. Patient reports that she has tried hydrocortisone cream and also Benadryl with no relief of severe itching. She reports that she has check her dogs and cat for fleas with none noted and they are on veterinary medications for prevention. Patient reports that theyhave chickens and that he is concerns for chicken mites and would like permethrin ointment treatment. Patient reports that also has similar rash noted for the past 2 days but not as severe. MD complaint: rash Onset (ago): week(s) (1) Location: generalized Severity: moderate Treatments prior to arrival: Benadryl and other (hydrocortisone ointment) Related Data Home Medications Medication Instructions Recorded Confirmed lactobacillus combination no.4 3 3,000 mmu cells PO DAILY 05/21/21 03/26/24 billion cell capsule (Probiotic) multivit with min-folic 1 tablet PO DAILY 05/21/21 03/26/24 acid-lutein 200 mcg-137.5 mcg chewable tablet (Adult Multivitamin (w-lutein)) magnesium 250 mg tablet 250 mg PO .Qd 01/01/23 03/26/24 B-complex with vitamin C (Super 1 cap PO DAILY 03/10/24 03/26/24 B/C capsule) ashwagandha extract 120 mg capsule mg PO 03/10/24 03/26/24 bee pollen 550 mg capsule mg PO DAILY 03/10/24 03/26/24 bergamot extract 500 mg capsule mg PO 03/10/24 03/26/24 ([place] Bergamot) fenugreek seed extract 500 mg 3,000 mg PO 03/10/24 03/26/24 capsule ferrous sulfate 325 mg (65 mg 325 mg PO DAILY 03/10/24 03/26/24 iron) tablet sooywgkk-tddvsre-hhywyaevmzgh cap PO 03/10/24 03/26/24 capsule jesse extract 500 mg capsule mg PO 03/10/24 03/26/24 modern mushroom supplement [facility] 03/10/24 03/26/24 pure saffron extract [facility] 03/10/24 03/26/24 Allergies Allergy/AdvReac Type Severity Reaction Status Date / Time doxycycline Allergy Severe Anaphylactic Verified 03/26/24 13:23 Shock spironolactone Allergy Severe Anaphylactic Verified 03/26/24 13:23 Shock Review of Systems Review of Systems: CONSTITUTIONAL: Denies fever, chills, or sweats. CARDIOVASCULAR: Denies chest pain, palpitations, or edema. RESPIRATORY: Denies cough or dyspnea. SKIN: Reports scattered red raised severe itchy lesions on ankles, legs abdomen and gluteus MUSCULOSKELETAL: Denies joint pain or myalgia. NEUROLOGIC: Denies headache, numbness, or weakness. All systems reviewed & are unremarkable except as noted in HPI and below PMFSH Past Medical History Medical History Anxiety BMI 25.0-25.9,adult Encounter for induction of labor Family history of bleeding or clotting disorder GBS carrier Gestational hypertension Herpes genitalis History of pre-eclampsia in prior , currently HSV-2 infection Vaginal delivery Vaginal discharge Surgical History Surgical History No history of previous surgery Family History Family History Grandparent Family history of elevated blood lipids Diabetes mellitus Family history of coronary artery disease Hypertension Cerebrovascular accident Mother Hypertension Depression Mother Seizure Bleeding disorder Social History Social History Smoking status: Former smoker Second hand tobacco smoke exposure: Yes Smoking end date: 10/20/12 Alcohol intake: current Substance use: never Substance use type: does not
== END 2024-05-15 13:40 | disposition home or self-care (01) ==
PROVIDERS: Emergency Provider Registered Nurse; PCP Nurse Practitioner Family
DX: B88.0 Other acariasis (principal); Z87.891 Personal history of nicotine dependence
CPT/HCPCS: 99213; G0463

== ENCOUNTER 2024-12-15 13:07 | Outpatient (CLI) | payer OTHER, SELFPAY ==
--- OUTSIDE RECORDS SUMMARY | 2024-12-15 14:44 | XMS_ITS | Clinical Summary ---
Author Organization [facility] Address [address] [place] [phone] Phone Care Team Providers Care Office Technology Instructor Name Role Phone Unavailable Primary Care Provider Unavailabl e Social History Tobacco Use Types Packs/Day Years Used Date Smoking Tobacco: Never Assessed Comments Unknown Sex and Gender Information Value Date Recorded Sex Assigned at Not on file Legal Sex Female 3:25 PM CDT Gender Identity Not on file Sexual Orientation Not on file Plan of Treatment Health Maintenance Due Date Last Done Comments HEPATITIS B VACCINES (1 of 3 - 19+ 3-dose series) 2010 CERVICAL CANCER SCREENING 2021 INFLUENZA VACCINE (#1) 2024 , 06/20/2015 DTAP/TDAP/TD VACCINES (3 - T d or Tdap) 04/28/2028 04/28/2018, 10/20/2013 HPV VACCINES Aged Out No longer eligi ble based on patient's age to complete this topic PNEUMOCOCCAL VACCINE 0-64 YEARS Aged Out No longer eligible b ased on patient's age to complete this topic Insurance BCBS BLUE PREFERRED
--- NOTE | 2024-12-16 10:49 | WPDPFTINT ---
PFT Procedure Performed PFT Procedure Performed Plethysmography (Lung Vol) Diffusing Cap (DLCO) Flow Vol Loop Spirometry w/o Bronchodil PFT Interpretation Lung volumes were measured with the body plethysmography method. Lung volumes are unremarkable. Spirometry showed normal expiratory flow rates and a normal FEV 1 to FVC ratio of 77%. No post bronchodilator study conducted. The lung diffusion capacity is within the normal range at 104% predicted. The flow-volume loop is indicative of a possible suboptimal effort. Impression: Spirometry, lung volumes, and lung diffusion capacity all within the normal range.
== END 2024-12-15 13:08 | disposition home or self-care (01) ==
LOC: ANHPFT 13:09
PROVIDERS: PCP Nurse Practitioner Family; Visit Provider Nurse Practitioner Family
DX: R06.02 Shortness of breath (principal)
CPT/HCPCS: 94375; 94726; 94729

== ENCOUNTER 2025-01-30 09:58 | Emergency (ER) | payer OTHER, SELFPAY ==
--- NOTE | ~2025-01-30 | XR_ITS ---
XR chest 2V Ordering provider: TAVO Olguin History: 34 years Female with . cough . Comparison: November 30, 2024 FINDINGS: MEDIASTINUM: The cardiac silhouette is not enlarged. LUNGS: No infiltrates, effusions or pneumothorax. OTHER: No free air under the diaphragm. IMPRESSION: No acute cardiopulmonary pathology. Reviewed, dictated and finalized at location A.
--- OUTSIDE RECORDS SUMMARY | 2025-01-30 10:01 | XMS_ITS | Clinical Summary ---
Author Organization [facility] Address [address] [place] [phone] Phone Care Team Providers Care Hand Tool Filer Name Role Phone Unavailable Primary Care Provider [...] of 3 - 19+ 3-dose series) 2010 HPV/Cotest (21-29) 2012 PAP SMEAR 2012 CERVICAL CANCER SCREENING 2021 HPV/Cotest (30-65) 2021 PAP SMEAR 2021 INFLUENZA VACCINE (#1) 2024 , 06/20/2015 DTAP/TDAP/TD VACCINES (3 - T d or Tdap) 04/28/2028 04/28/2018, 10/20/2013 HPV VACCINES Aged Out No longer eligi ble based on patient's age to complete this topic PNEUMOCOCCAL VACCINE 0-49 YEARS Aged Out No longer eligible b ased on patient's age to complete this topic Insurance BCBS BLUE PREFERRED [facility]
[2025-01-30 10:03] VITALS: BP 119/69; PULSE 84; RESP 14; TEMP 36.7; O2SAT 100
--- NOTE | 2025-01-30 10:41 | ED_ITS ---
HPI - General Adult General Chief complaint: Upper Respiratory Infection Stated complaint: Cough/Sinus Problem Source: patient Mode of arrival: ambulatory Limitations: no limitations History of Present Illness HPI narrative: Pt presents for evaluation of sick symptoms. She had mild symptoms that started two days ago, which worsened yesterday. Symptoms include sinus congestion, thick green nasal discharge, productive cough of green sputum, SOB, sore throat and fever. Her family members all recently had similar symptoms. She tried dayquil for her symptoms. She is a former smoker. She has a history of exer cise-induced asthma. She tried using her albuterol inhaler without much improvement. Related Data Home Medications ?Medication ?Instructions ?Recorded ?Confirmed ?Last Taken ?Type lactobacillus combination no.4 3 3,000 mmu cells PO DAILY 05/21/21 01/30/25 Unknown History billion cell capsule (Probiotic) dteqrzbtdjpq-kmwu-aeimo acid 200 1 tablet PO DAILY 05/21/21 01/30/25 Unknown History mcg-lutein 137.5 mcg chewable tablet (Adult Multivitamin (w-lutein)) Allergies Allergy/AdvReac Type Severity Reaction Status Date / Time doxycycline Allergy Severe Anaphylactic Verified 01/30/25 10:01 Shock spironolactone Allergy Severe Anaphylactic Verified 01/30/25 10:01 Shock Review of Systems Review of Systems: CONSTITUTIONAL: Reports fever. Denies chills, or sweats. EYES: Denies visual changes, redness, or discharge. ENT: Reports sinus congestion, thick green nasal drainage, and sore throat CARDIOVASCULAR: Denies chest pain, palpitations, or edema. RESPIRATORY: Reports cough and SOB GASTROINTESTINAL: Denies abdominal pain, nausea, vomiting, or diarrhea. GENITOURINARY: Denies dysuria or hematuria. SKIN: Denies rash or itching. MUSCULOSKELETAL: Denies back pain, joint pain, or myalgia. NEUROLOGIC: Denies headache, numbness, dizziness, or weakness. PSYCHIATRIC: Denies anxiety or depression. [facility] Past Medical History Medical History HSV-2 infection BMI 25.0-25.9,adult Family history of bleeding or clotting disorder Herpes genitalis Vaginal discharge Anxiety GBS carrier Encounter for induction of labor Gestational hypertension History of pre-eclampsia in prior , currently Vaginal delivery Surgical History Surgical History No history of previous surgery Family History Family History Grandparent Family history of elevated blood lipids Diabetes mellitus Family history of coronary artery disease Hypertension Cerebrovascular accident Mother Hypertension Depression Mother Seizure Bleeding disorder Social History Social History Social History: 11/30/24 Very confident with medical forms Smoking status: Former smoker Second hand tobacco smoke exposure: Yes Smoking end date: 10/20/12 Alcohol intake: current Substance use: never Substance use type: does not use Do You Feel Safe in your Home?: Yes Lack of Transportation: No Lack of Food: Never True Current Housing: I Have Housing Concerned About Future Housing: No Difficulty Paying Gas/Electric Bills: No Difficulty Paying for Meds: No Currently Unemployed: No Education: Associate Degree Difficulty w/ Childcare or Family Care: No Gender identity (if verbalized by the patient): Female Spiritual care concerns: No Exam Narrative: GENERAL: Well-appearing, well-nourished, and in no acute distress. HEAD: Normocephalic, atraumatic. EYES: PERRLA and EOMI. ENT: Nares clear, no rhinorrhea or epistaxis. Mucous membranes moist. Oropharynx without tonsillar hypertrophy exudate or other lesions. Bilateral TMs pearly abraham nonbulging NECK: Supple. No adenopathy or masses. No carotid bruits or JVD CHEST: Clear to auscultation. No respiratory distress. No wheezes rales or rhonchi HEART: Regular rate and rhythm. No murmur heard. Normal peripheral pulses. ABDOMEN: Soft, nontender, nondistended, normal active bowel sounds. EXTREMITIES: Normal range of motion. No edema. SKIN: Warm, dry, no rash. NEURO: No focal deficits. Alert and oriented x3. PSYCH: Normal mood and affect. Course Course Emergency Course: This is a 34 yr old female who presented for evaluation of respiratory symptoms. Flu, COVID, strep negative. Will send throat culture. CXR negative. She meets criteria for ABRS based upon presence of fever and mucopurulent nasal drainage. Will dc with augmentin and prednisone. Increase hydration. OTC agents for symptom management. Follow up with primary provider. Go to the ER for worsening symptoms. Patient in agreement with plan of care. Level of Care: Express Care Visit Vital Signs Vital signs: Vital Signs Temperature 36.7 C 01/30/25 10:03 Pulse Rate 84 01/30/25 10:03 Respiratory Rate 14 01/30/25 10:03 Blood Pressure 119/69 01/30/25 10:03 Pulse Oximetry 100 01/30/25 10:03 Oxygen Delivery Room Air 01/30/25 10:03 Temperature 36.7 C 01/30/25 10:03 Pulse Rate 84 01/30/25 10:03 Respiratory Rate 14 01/30/25 10:03 Blood Pressure 119/69 01/30/25 10:03 Pulse Oximetry 100 01/30/25 10:03 Oxygen Delivery Room Air 01/30/25 10:03 Medical Decision Making Vital Signs Vital Signs: Vital Signs Temperature 36.7 C 01/30/25 10:03 Pulse Rate 84 01/30/25 10:03 Respiratory Rate 14 01/30/25 10:03 Blood Pressure 119/69 01/30/25 10:03 Pulse Oximetry 100 01/30/25 10:03 Oxygen Delivery Room Air 01/30/25 10:03 Temperature 36.7 C 01/30/25 10:03 Pulse Rate 84 01/30/25 10:03 Respiratory Rate 14 01/30/25 10:03 Blood Pressure 119/69 01/30/25 10:03 Pulse Oximetry 100 01/30/25 10:03 Oxygen Delivery Room Air 01/30/25 10:03 Lab Data Labs: Lab Results 01/30/25 Range/Units 10:54 POC Influenza A Ag Negative (Negative) POC Influenza B Ag Negative (Negative) POC SARS CoV-2 Ag Negative (Negative) POC Grp A Strep Screen Negative (Negative) Imaging Data Radiologist's impression: XR chest 2V Ordering provider: TAVO Olguin History: 34 years Female with . cough . Comparison: November 30, 2024 FINDINGS: MEDIASTINUM: The cardiac silhouette is not enlarged. LUNGS: No infiltrates, effusions or pneumothorax. OTHER: No free air under the diaphragm. IMPRESSION: No acute cardiopulmonary pathology. Discharge Plan Discharge Clinical Impression: Sinusitis Patient Disposition: Home Condition: Stable Instructions: Antibiotic Form, Sinusitis (ED) Patient Language: Jordanian Prescriptions: New amoxicillin-pot clavulanate 875-125 mg tablet 1 tablet PO Q12H Qty: 20 0RF prednisone 50 mg tablet 50 mg PO DAILY Qty: 5 0RF No Action ieinmevb-dda-pzprj acid-lutein [Adult Multivitamin (w-lutein)] 200-137.5 mcg tablet,chewable 1 tablet PO DAILY Probiotic 3 billion cell capsule 3,000 mmu cells PO DAILY Rx Instructions: administer with a meal valacyclovir [Valtrex] 500 mg tablet 1,000 mg PO DAILY Qty: 180 3RF dextroamphetamine-amphetamine [Adderall XR] 15 mg capsule,extended release 24hr 15 mg PO DAILY Qty: 30 0RF Follow-up/Referrals: Marisela Olvera APRN [Primary Care Provider] - Stand Alone Forms: Work/School Release IP Time of Disposition: 11:06
[2025-01-30 10:56] LABS: EDCOVIDSCREEN Negative (Negative); EDINFLUASCREEN Negative (Negative); EDINFLUBSCREEN Negative (Negative); EDSTREPNEGPOS1 Negative (Negative)
== END 2025-01-30 11:08 | disposition home or self-care (01) ==
PROVIDERS: Emergency Provider Nurse Practitioner; PCP Nurse Practitioner Family
DX: J32.9 Chronic sinusitis, unspecified (principal); Z87.891 Personal history of nicotine dependence; Z20.822 Contact with and (suspected) exposure to COVID-19
CPT/HCPCS: 71046; 87081; 87426; 87804; 87880; 99213; G0463

== ENCOUNTER 2025-03-07 11:35 | Outpatient (CLI) | payer OTHER, SELFPAY ==
--- NOTE | ~2025-03-07 | CT_ITS ---
CT Scan of the Chest without Contrast: Clinical Indication: Asthma Technique: Contiguous sections were acquired throughout the chest without intravenous contrast. Dose reduction technique was used on this scan by utilizing automated exposure control and iterative recon struction technique. The dose-length product (DLP) was 140.27 mGy-cm. Findings: There is no evidence of any significant mediastinal, hilar or axillary lymphadenopathy. The mediastin al soft tissues appear normal. There is no evidence of pleural or pericardial effusion. The lungs are clear. No pulmonary nodules or infiltrates are noted. Images through the upper abdomen reveal no abnormalities. Impression: No significant abnormalities seen. Reviewed, dictated and finalized at location . Impression: No significant abnormalities seen.
--- OUTSIDE RECORDS SUMMARY | 2025-03-07 11:53 | XMS_ITS | Clinical Summary ---
Author Organization [facility] Address [address] [place] [phone] Phone Care Team Providers Care Billboard Installer Name Role Phone Unavailable Primary Care Provider [...] 19+ 3-dose series) 2010 HPV/Cotest (21-29) 2012 CERVICAL CANCER SCREENING 2021 HPV/Cotest (30-65) 2021 PAP SMEAR 2021 INFLUENZA VACCINE (#1) 2024 , 06/20/2015 DTAP/TDAP/TD VACCINES (3 - Td or Tdap) 04/28/2028 04/28/2018, 10/20/2013 HPV VACCINES Aged Out No longer eligi ble based on patient's age to complete this topic Insurance [employer] BLUE PREFERRED
[2025-03-07 11:56] LABS: Basophils Absolute Auto 0.1 K/mm3 (0.0-0.1); Basophils Percent Auto 0.7 % (0.2-1.2); Eosinophils Absolute Auto 0.2 K/mm3 (0-0.3); Eosinophils Percent Auto 3.1 % (0-4.4); Hematocrit 39.9 % (37.0-47.0); Immature Granulocyte Absolute 0.02 K/mm3 (0.00-0.031); Immature Granulocyte Percent A 0.3 % (0-0.5); Lymphocytes Absolute Auto 2.05 K/mm3 (0.9-3.2); Lymphocytes Percent Auto 27.9 % (18.3-44.2); Mean Corpuscular HGB Conc 32.6 g/dl (32-36); Mean Corpuscular Volume 92.1 fl (80-100); Mean Platelet Volume 9.1 fl (7.4-10.4); Monocytes Absolute Auto 0.5 K/mm3 (0.1-0.6); Monocytes Percent Auto 7.2 % (2.6-8.5); Neutrophils Absolute Auto 4.5 K/mm3 (1.3-6.7); Neutrophils Percent Auto 60.8 % (45.5-73.1); Platelet Count Result 225 k/mm3 (150-375); Red Blood Count 4.33 M/mm3 (4.2-5.4); Red Cell Distribution Width 12.6 % (11.5-14.5); White Blood Count 7.3 K/mm3 (4.5-10.0)
[2025-03-07] MEDS: METHACHOLINE CHLORIDE 18 ML VIAL.NEB INHALATION (14:34)
--- NOTE | 2025-03-07 16:57 | P.METCHAL_ITS ---
Methacholine Procedure Perform Procedure Performed Methacholine Challenge Methacholine Challenge Methacholine Challenge: This is a methacholine challenge test. The test was performed and interpreted in accordance with the 2017 ERS technical standard, endorsed by the ATS, using the GLI 2012 reference equations. Testing was performed with increasing doses of nebulized methacholine following a quadrupling dosage protocol. The methacholine dose was delivered via the [employer] nebulizer using a 1-minutes tidal breathing protocol. The best post-methacholine FEV1 values were used to determine the change from the post diluent FEV1. The delivered dose of methacholine was used to calculate the provocative dose causing a 20% fall in FEV1 (PD20). Findings: Baseline FEV1 3.40 L, 107% predicted. Post diluent FEV1 3.48 L Post 1.81 mcg methacholine FEV1 3.49 L, decreased 0% Post 7.26 mcg methacholine FEV1 3.36 L, decreased 4% Post 29.03 mcg methacholine FEV1 3.40 L, decreased 2% Post 116.1 mcg methacholine FEV1 3.25 L, decreased 7% Post 464.4 mcg methacholine FEV1 3.22 L, decreased 8% Post albuterol nebulization FEV1 3.37 L Impression: The PD20 is > 400 mcg which is categorized as normal airway hyperresponsiveness. There are no prior methacholine challenge studies for comparison.
[2025-03-10 18:32] LABS: Alternaria alternata IgE <0.10 kU/L; Alternaria alternata IgE Class 0; Aspergillus fumigatus IgE <0.10 kU/L; Bermuda Grass (G2) IgE <0.10 kU/L; Bermuda Grass (G2) IgE Class 0; Cat Dander IgE <0.10 kU/L; Cat Dander IgE Class 0; Cladosporium herbarum IgE <0.10 kU/L; Cladosporium herbarum IgE Clas 0; Cockroach IgE <0.10 kU/L; Cockroach IgE Clas 0; Common Ragweed IgE Class 0; Cottonwood IgE <0.10 kU/L; Dermatophagoides Farinae Class 0; Dermatophagoides Pterony Class 0; Dermatophagoides Pteronyssinus <0.10 kU/L; Dog Dander IgE <0.10 kU/L; Elm (T8) IgE <0.10 kU/L; Elm (T8) IgE Class 0; Hickory/Pecan IgE <0.10 kU/L; Hickory/Pecan IgE Class 0; Immunoglobulin E 57 kU/L (<OR=114); Maple Box Elder IgE Class 0; Mountain Cedar IgE <0.10 kU/L; Mountain Cedar IgE Class 0; Mouse Urine Proteins IgE <0.10 kU/L; Mouse Urine Proteins IgE Class 0; Oak IgE <0.10 kU/L; Peniciliium notatum class 0; Penicillium notatum (M1) IgE <0.10 kU/L; Rough Marsh <0.10 kU/L; Rough Marsh Elder Class 0; Rough Pigweed (W14) IgE <0.10 kU/L; Rough Pigweed (W14) IgE Class 0; Russian Thistle <0.10 kU/L; Sycamore IgE <0.10 kU/L; Sycamore IgE Class 0; Timothy Grass IgE <0.10 kU/L; Timothy Grass IgE Class 0; Walnut Tree IgE <0.10 kU/L; Walnut Tree IgE Class 0; White Ash IgE Class 0; White Mulberry IgE <0.10 kU/L; White Mulberry IgE Class 0
== END 2025-03-07 11:36 | disposition home or self-care (01) ==
PROVIDERS: PCP Nurse Practitioner Family; Visit Provider Physician Assistant
DX: J45.909 Unspecified asthma, uncomplicated (principal); R05.8 Other specified cough; Z86.16 Personal history of COVID-19
CPT/HCPCS: 36415; 71250; 82785; 85025; 86003; 94070; J7674

== ENCOUNTER 2025-04-19 11:47 | Outpatient (CLI) | payer OTHER, SELFPAY ==
--- OUTSIDE RECORDS SUMMARY | 2025-04-19 11:50 | XMS_ITS | Clinical Summary ---
Author Organization [facility] Address [address] [place] [phone] Phone Care Team Providers Care Journeyman Powerhouse Operator Name Role Phone Unavailable Primary Care Provider [...]
[2025-04-19 12:24] LABS: Alanine Aminotransferase 29 U/L (6-35); Albumin Level 4.6 g/dL (3.5-5.1); Alkaline Phosphatase 55 U/L (38-126); Anion Gap 8 mmol/L (4-12); Aspartate Amino Transferase 30 U/L (14-36); Bilirubin,Total 0.5 mg/dL (0.2-1.3); Blood Urea Nitrogen 17 mg/dL (7-17); Calcium 9.3 mg/dL (8.4-10.2); Carbon Dioxide 28 mmol/L (22-30); Chloride 103 mmol/L (98-107); Cholesterol 219 mg/dL (0-200); Estimated Glomerular Filt Rate > 60; Glucose 90 mg/dL (65-110); HDL Direct 54 mg/dL; Potassium 4.2 mmol/L (3.4-5.0); Sodium 139 mmol/L (137-145); Total Protein 7.7 g/dL (6.3-8.2); Triglycerides 125 mg/dL (<150)
[2025-04-19 12:33] LABS: Hemoglobin A1C. 5.1 % (<5.7)
[2025-04-19 12:54] LABS: Thyroid Stimulating Hormone Reflex 1.710 uIU/mL (0.465-4.68)
== END 2025-04-19 11:48 | disposition home or self-care (01) ==
LOC: ANHLAB 11:48
PROVIDERS: PCP Nurse Practitioner Family; Visit Provider Nurse Practitioner Family
DX: Z13.29 Encounter for screening for other suspected endocrine disorder (principal); Z13.1 Encounter for screening for diabetes mellitus; E78.5 Hyperlipidemia, unspecified
CPT/HCPCS: 36415; 80053; 80061; 83036; 84443

== ENCOUNTER 2025-05-03 11:06 | Outpatient (CLI) | payer OTHER, SELFPAY ==
--- OUTSIDE RECORDS SUMMARY | 2025-05-03 11:25 | XMS_ITS | Clinical Summary ---
Author Organization [facility] Address [address] [place] [phone] Phone Care Team Providers Care Biofuels Processing Technician Name Role Phone Unavailable Primary Care Provider [...] 2021 PAP SMEAR 2021 INFLUENZA VACCINE (#1) 2025 , 06/20/2015 DTAP/TDAP/TD VACCINES (3 - Td or Tdap) 04/28/2028 04/28/2018, 10/20/2013 HPV VACCINES Aged Out No longer eligi ble based on patient's age to complete this topic Insurance [employer] BLUE PREFERRED
[2025-05-03 11:33] LABS: Add Urine Microscopic? YES; Appearance Urine Clear (Clear); Glucose Urine UA Negative (Negative); Leukocyte Esterase Ur Trace LEU/UL (Negative); Nitrate Urine Negative (Negative); Non Pathogenic Casts 0-2; Specific Grav Ur 1.012 (1.001-1.035)
== END 2025-05-03 11:07 | disposition home or self-care (01) ==
LOC: ANHLAB 11:07
PROVIDERS: PCP Nurse Practitioner Family; Visit Provider Nurse Practitioner Family
DX: R35.0 Frequency of micturition (principal)
CPT/HCPCS: 81001